=== PATIENT | male | born 1935 ===

== ENCOUNTER 2017-05-03 17:04 | Inpatient (IN) | payer MEDICARE ==
[2017-05-03 17:04] VITALS: BMI 35.7
--- NOTE | 2017-05-03 17:57 | C.PDOC ---
History Of Present Illness Patient is an 81 y/o M sent in by PMD Dr. Pineda for "24 hour holter monitor that showed multiple pauses and second degree av block type 1 and 2." Patient' s PMD contacted Dr. Kaplan, cardiology who recommended futher evaluation. Patient reports that he feels well today but that he had holter monitor placed due to dizziness Time Seen by Provider: 05/03/17 17:48 Chief Complaint (Nursing): Abnormal Labs Past Medical History Vital Signs: Last Vital Signs Temp 98.1 F 05/03/17 17:09 Pulse 92 H 05/03/17 17:09 Resp 15 05/03/17 17:09 BP 149/82 05/03/17 17:09 Pulse Ox 95 05/03/17 18:12 - Medical History PMH: Hypercholesterolemia Surgical History: CABG Family History: States: No Known Family Hx - Social History Hx Alcohol Use: No Hx Substance Use: No Review Of Systems Constitutional: Negative for: Fever, Chills Cardiovascular: Negative for: Chest Pain, Palpitations, Orthopnea, Edema, Light Headedness Respiratory: Negative for: Cough, Shortness of Breath, SOB with Excertion, Wheezing Gastrointestinal: Negative for: Nausea, Vomiting, Abdominal Pain, Constipation Genitourinary: Negative for: Dysuria Musculoskeletal: Negative for: Neck Pain Neurological: Negative for: Weakness, Numbness Physical Exam - Physical Exam Appears: Well, Non-toxic Skin: Normal Color, Warm, Dry Head: Atraumatic, Normacephalic Eye(s): bilateral: Normal Inspection, PERRL, EOMI Neck: Supple Cardiovascular: Rhythm Regular Respiratory: Normal Breath Sounds, No Rales, No Rhonchi, No Wheezing Gastrointestinal/Abdominal: Soft, No Tenderness, No Mass, No Distention Back: Normal Inspection, No CVA Tenderness Extremity: Normal ROM ED Course And Treatment O2 Sat by Pulse Oximetry: 95 Medical Decision Making Medical Decision Making: EKG shows NSR at 86bpm with 1st degree block and RBBB, unchanged from EKG sent from PMD. Labs ordered and Dr. Kaplan contacted. Dr. Kaplan requesting patient to be admitted to hospitalist for cardiac evaluation and likely pacemaker placement. Disposition - Disposition Disposition: HOSPITALIZED Disposition Time: 18:16 Condition: FAIR Forms: [employer] ([place]i) - Clinical Impression Clinical Impression: Bradycardia, AV block
[2017-05-03 18:14] LABS: BASO # 0.1 K/uL (0.0-0.2); BASO % 0.8 % (0.0-2.0); EOS # 0.2 K/uL (0.0-0.7); EOS % 2.3 % (0.0-4.0); HEMATOCRIT 41.3 % (35.0-51.0); LYMPH # 2.7 K/uL (1.0-4.3); LYMPH % 34.7 % (20.0-40.0); MEAN CELL VOLUME 87.7 fL (80.0-94.0); MEAN CORPUSCULAR HEMOGLOBIN 29.7 pg (27.0-31.0); MEAN CORPUSCULAR HGB CONC 33.9 g/dL (33.0-37.0); MEAN PLATELET VOLUME 7.4 fL (7.2-11.7); MONO # 0.8 K/uL (0.0-0.8); MONO % 10.5 % (0.0-10.0); WHITE BLOOD COUNT 7.9 K/uL (4.8-10.8)
[2017-05-03 18:20] LABS: CHLORIDE 103 mmol/L (98-107); POTASSIUM 4.3 mmol/L (3.6-5.2); SODIUM 141 mmol/L (132-148)
[2017-05-03 18:22] LABS: GFR AFRICAN-AMERICAN > 60
[2017-05-03 18:23] LABS: ALB/GLOB RATIO 1.2 (1.0-2.1); ALKALINE PHOSPHATASE 66 U/L (38-126); ALT/SGPT 39 U/L (21-72); AST/SGOT 21 U/L (17-59); BILIRUBIN,TOTAL 0.7 mg/dL (0.2-1.3); BLOOD UREA NITROGEN 20 mg/dL (9-20); CARBON DIOXIDE 23 mmol/L (22-30); GLUCOSE,RANDOM 107 mg/dL (75-110); TOTAL PROTEIN 6.9 g/dL (6.3-8.3)
[2017-05-03 18:27] LABS: INR 1.1
--- NOTE | 2017-05-03 18:54 | RAD ---
HISTORY: bradycardia COMPARISON: None available. TECHNIQUE: Chest, one view. FINDINGS: Examination limited by habitus. LUNGS: No focal consolidation. Please note that chest x-ray has limited sensitivity for the detection of pulmonary masses. PLEURA: No significant pleural effusion identified. No definite pneumothorax . CARDIOVASCULAR: Cardiomegaly. Atherosclerotic calcifications of the aortic knob. OSSEOUS STRUCTURES: Degenerative changes of the spine. VISUALIZED UPPER ABDOMEN: Unremarkable. OTHER FINDINGS: None. IMPRESSION: Cardiomegaly. Atherosclerotic calcifications of the aorta.
--- NOTE | 2017-05-03 22:52 | CP.PCM.CON ---
History of Present Illness - History of Present Illness History of Present Illness: CC: dizziness and 2 ' AVB block noted on holtor monitor HPI: 81-year-old male who was referred to me by his primary care audio visual project manager Dr. Morley for evaluation of second-degree AV block recorded on Holter monitor for evaluation of dizziness. According to his audio visual project manager he has been having severe fatigue and lethargy accompanied with dizziness for a few weeks prior to this presentation. He feels that he may be a component of underlying ischemic heart disease and therefore sent him to the emergency room for further evaluation and treatment. 81-year-old very pleasant male with past medical history significant for prostate cancer status post resection 25 years ago hypertension dyslipidemia who has been followed by Dr. montgomery in the office for symptoms of dizziness. Patient had undergone a stress test and a Holter monitor 2 weeks prior to presentation. Week prior to this presentation patient was noted to have second-degree high AV block and therefore was referred to me for further evaluation and treatment at baseline he is fairly active denies any chest pain shortness palpitations dizziness at NYHA V milligrams 1 2 dyspnea. Past medical history is noted above. Past surgical history prostate resection. Family history significant for dad of [place] at age of 96 mom had Alzheimer's age age of 93. Social history 40 pack year history of smoking occasional alcohol no illicit drug use. Home medications patient takes metoprolol meclizine Norvasc Edarbi 40 mg Crestor. Allergies no known drug allergies. Primary care physician Dr. Yury Waggoner Review of Systems - Review of Systems All systems: reviewed and no additional remarkable complaints except - Constitutional Constitutional: As Per HPI, Fatigue, Lethargy, Malaise. absent: Anorexia, Chills, Daytime Sleepiness, Excessive Sweating, Fever, Frequent Falls, Headache , Increased Appetite, Night Sweats, Snoring, Sleep Apnea, Weight Gain, Weight Loss, Weakness, Other - EENT Eyes: As Per HPI. absent: Blind Spots, Blurred Vision, Change in Vision, Decreased Night Vision, Diplopia, Discharge, Dry Eye, Exophthalmos, Floaters, Irritation, Itchy Eyes, Loss of Peripheral Vision, Pain, Photophobia, Requires Corrective Lenses, Sees Flashes, Spots in Vision, Tunnel Vision, Other Visual Disturbances, Loss of Vision, Other Ears: As Per HPI. absent: Decreased Hearing, Ear Discharge, Ear Pain, Tinnitus , Abnormal Hearing, Disequilibrium, Dizziness, Other Nose/Mouth/Throat: As Per HPI. absent: Epistaxis, Nasal Congestion, Nasal Discharge, Nasal Obstruction, Nasal Trauma, Nose Pain, Post Nasal Drip, Sinus Pain, Sinus Pressure, Bleeding Gums, Change in Voice, Dental Pain, Dry Mouth, Dysphagia, Halitosis, Hoarsness, Lip Swelling, Mouth Lesions, Mouth Pain, Odynophagia, Sore Throat, Throat Swelling, Tongue Swelling, Facial Pain, Neck Pain, Neck Mass, Other - Cardiovascular Cardiovascular: As Per HPI, Leg Edema, Lightheadedness, Palpitations, Slow Heart Rate. absent: Acrocyanosis, Chest Pain, Chest Pain at Rest, Chest Pain with Activity, Claudication, Diaphoresis, Dyspnea, Dyspnea on Exertion, Edema, Irregular Heart Rhythm, Pain Radiating to Arm/Neck/Jaw, Leg Ulcers, Orthopnea, Paroxysmal Nocturnal Dyspnea, Pedal Edema, Radiating Pain, Rapid Heart Rate, Syncope, Other - Respiratory Respiratory: As Per HPI, Dyspnea. absent: Cough, Hemoptysis, Dyspnea on Exertion, Wheezing, Snoring, Stridor, Pain on Inspiration, Chest Congestion, Excessive Mucous Production, Change in Mucous Color, Pain with Coughing, Other - Gastrointestinal Gastrointestinal: As Per HPI. absent: Abdominal Pain, Belching, Bloating, Change in Bowel Habits, Change in Stool Character, Coffee Ground Emesis, Constipation, Cramping, Diarrhea, Dyspepsia, Dysphagia, Early Satiety, Excessive Flatus, Fecal Incontinence, Heartburn, Hematemesis, Hematochezia, Loose Stools, Melena, Nausea, Odynophagia, Temesmus, Vomiting, Other - Genitourinary Genitourinary: As Per HPI. absent: Change in Urinary Stream, Difficulty Urinating, Dysuria, Flank Pain, Hematuria, Pyuria, Nocturia, Urinary Incontinence, Urinary Frequency, Urinary Hesitance, Urinary Urgency, Voiding Freq/Small Amts, Freq UTI, Hx Renal/Bladder Calculi, Hx /Renal Surgery, Bladder Distension, Other - Reproductive: Male Reproductive:Male: As Per HPI - Musculoskeletal Musculoskeletal: As Per HPI - Integumentary Integumentary: As Per HPI. absent: Acne, Alopecia, Bleeding Lesions, Change in Hair, Change in Nails, Change in Pigmentation, Changing Lesions, Dry Skin, Erythema, Furuncle, Hirsutism, Lesions, New Lesions, Non-Healing Lesions, Photosensitivity, Pruritus, Rash, Skin Pain, Skin Ulcer, Sores, Striae, Swelling , Unusual Bruising, Wounds, Jaundice, Other - Neurological Neurological: As Per HPI. absent: Abnormal Gait, Abnormal Hearing, Abnormal Movements, Abnormal Speech, Behavioral Changes, Burning Sensations, Confusion, Convulsions, Disequilibrium, Dizziness, Numbness, Focal Weakness, Frequent Falls , Headaches, Lack of Coordination, Loss of Vision, Memory Loss, Paresthesias, Radicular Pain, Restless Legs, Sensory Deficit, Syncope, Tingling, Tremor, Vertigo, Weakness, Other Visual Disturbances, Other - Psychiatric Psychiatric: As Per HPI. absent: Abnormal Sleep Pattern, Anhedonia, Anxiety, Auditory Hallucinations, Behavioral Changes, Change in Appetite, Change in Libido, Confusion, Depression, Difficulty Concentrating, Hallucinations, Homicidal Ideation, Hopelessness, Irritability, Memory Loss, Mood Swings, Panic Attacks, Paranoia, Suicidal Ideation, Visual Hallucinations, Tactile Hallucinations, Other - Endocrine Endocrine: As Per HPI. absent: Change in Body Appearance, Change in Libido, Cold Intolorance, Deepening of Voice, Excessive Sweating, Fatigue, Flushing, Heat Intolorance, Increase in Ring/Shoe/Hat Size, Palpitations, Polydipsia, Polyphagia, Polyuria, Other - Hematologic/Lymphatic Hematologic: As Per HPI. absent: Easy Bleeding, Easy Bruising, Lymphadenopathy , Other Past Patient History - Past Social History Smoking Status: Former Smoker - CARDIAC Hx Hypercholesterolemia: Yes - PSYCHIATRIC Hx Substance Use: No - SURGICAL HISTORY Hx Coronary Artery Bypass Graft: Yes Meds Home Medications: Home Medication List Medication Instructions Recorded Confirmed Type Losartan [Cozaar] 25 mg PO DAILY tab 05/08/17 Rx Rosuvastatin Calcium [Crestor] 20 mg PO HS tab 05/08/17 Rx Aspirin [Aspirin Chewable] 81 mg PO DAILY #30 05/11/17 Rx Clopidogrel [Plavix] 75 mg PO DAILY #30 tab 05/11/17 Rx Docusate [Colace] 100 mg PO BID #60 cap 05/11/17 Rx Metoprolol Tartrate 25 mg PO DAILY #30 tablet 05/11/17 Rx Allergies/Adverse Reactions: Allergies Allergy/AdvReac Type Severity Reaction Status Date / Time No Known Allergies Allergy Verified 05/03/17 17:08 Physical Exam - Constitutional Appears: Well - Head Exam Head Exam: ATRAUMATIC, NORMAL INSPECTION, NORMOCEPHALIC - Eye Exam Eye Exam: EOMI, Normal appearance, PERRL Pupil Exam: NORMAL ACCOMODATION, PERRL - ENT Exam ENT Exam: Mucous Membranes Moist, Normal Exam - Neck Exam Neck exam: Positive for: Normal Inspection - Respiratory Exam Respiratory Exam: Clear to Auscultation Bilateral, NORMAL BREATHING PATTERN - Cardiovascular Exam Cardiovascular Exam: Bradycardia, REGULAR RHYTHM, RRR, +S1, +S2, Systolic Murmur - GI/Abdominal Exam GI & Abdominal Exam: Normal Bowel Sounds, Soft. absent: Tenderness - Extremities Exam Extremities exam: Positive for: normal inspection - Back Exam Back exam: NORMAL INSPECTION - Neurological Exam Neurological exam: Alert, CN II-XII Intact, Normal Gait, Oriented x3, Reflexes Normal - Psychiatric Exam Psychiatric exam: Normal Affect, Normal Mood - Skin Skin Exam: Dry, Intact, Normal Color, Warm Results - Vital Signs Recent Vital Signs: Last Vital Signs Temp 98.0 F 05/03/17 20:25 Pulse 75 05/03/17 20:25 Resp 16 05/03/17 20:25 BP 123/89 05/03/17 20:25 Pulse Ox 96 05/03/17 20:25 - Labs Result Diagrams: 05/11/17 10:50 05/11/17 10:50 Assessment & Plan (1) AV block Assessment and Plan: EP evaluation cardiac cath to r/o IHD monitor on telemetry Status: Acute (2) Bradycardia Assessment and Plan: EP PPM eval telemetry Status: Acute (3) Dizziness Assessment and Plan: 2' to above monitor on telemetry Status: Acute
--- NOTE | 2017-05-04 03:59 | CP.PCM.HP ---
<Jackie Vidal - Last Filed: 05/04/17 04:31> History of Present Illness - History of Present Illness History of Present Illness: Patient was seen and examined at approximately 20:20PM on 05/03/17. Patient is DNR/DNI and deems brother Shad Ochoa as Power of employment attorney CC: dizziness HPI: 81 year old male with PMHx significant for Heart block and arthritis presents in need of pacemaker. Patient began experiencing dizziness approximately two weeks ago. He went to see his PMD Dr. Pineda who recommended a holter monitor. The findings of the monitor were significant for second degree AV block. Patient was thus referred to see [employer] Dr. Kaplan for pacemaker placement. Today, patient states that he does not have any complaints. He specifically denies subjective fevers or chills, chest pain, palpitations, weakness, headaches, nausea, vomiting, changes in bowels, recent weight changes at this time. PMHx- as noted above PSHx- prostate procedure 25 years ago. Patient states that they " took a scrape " Fam Hx- Dad at the age of 96 of an SC; Mother diagnosed with Alzhiemer's at 89. at the age of 93 Social Hx- Smoked 1 ppd from the age of 16 to the age of 39; drinks a glass of red wine frequently; denies illicit drug use Meds- Folic acid 1 mg daily, toprol XL 25 mg daily, meclizine 25 mg PO BID, Norvasc 5 mg daily, Edarbi ( azilsartan medoxomil) 40 mg daily, Crestor 20 mg at night Allergies- NKDA PMD: Dr. Yury Pineda Present on Admission - Present on Admission Any Indicators Present on Admission: No Review of Systems - Constitutional Constitutional: absent: Frequent Falls, Headache - EENT Eyes: absent: Blurred Vision, Change in Vision Ears: absent: Ear Discharge, Ear Pain Nose/Mouth/Throat: absent: Nasal Congestion - Cardiovascular Cardiovascular: absent: Chest Pain, Chest Pain at Rest - Gastrointestinal Gastrointestinal: absent: Nausea, Vomiting - Musculoskeletal Musculoskeletal: Back Pain - Integumentary Integumentary: absent: Change in Hair, Dry Skin - Neurological Neurological: absent: Abnormal Hearing, Abnormal Movements - Psychiatric Psychiatric: absent: Anxiety Past Patient History - Past Social History Smoking Status: Former Smoker - CARDIAC Hx Hypercholesterolemia: Yes - PSYCHIATRIC Hx Substance Use: No - SURGICAL HISTORY Hx Coronary Artery Bypass Graft: Yes Meds Allergies/Adverse Reactions: Allergies Allergy/AdvReac Type Severity Reaction Status Date / Time No Known Allergies Allergy Verified 05/03/17 17:08 Physical Exam - Constitutional Appears: Non-toxic, No Acute Distress, Younger Than Stated Age - Head Exam Head Exam: ATRAUMATIC, NORMAL INSPECTION, NORMOCEPHALIC - Eye Exam Eye Exam: EOMI, Normal appearance, PERRL Pupil Exam: NORMAL ACCOMODATION - ENT Exam ENT Exam: Mucous Membranes Moist - Neck Exam Neck exam: Positive for: Full Rom - Respiratory Exam Respiratory Exam: NORMAL BREATHING PATTERN. absent: Wheezes - Cardiovascular Exam Cardiovascular Exam: +S1, +S2. absent: Bradycardia, Tachycardia Additional comments: difficult to auscultate heart sounds - GI/Abdominal Exam GI & Abdominal Exam: Distended, Normal Bowel Sounds, Soft. absent: Firm, Guarding, Rigid - Extremities Exam Extremities exam: Positive for: full ROM, normal capillary refill, pedal pulses present. Negative for: tenderness - Back Exam Back exam: FULL ROM - Neurological Exam Neurological exam: Alert, CN II-XII Intact, Oriented x3 - Psychiatric Exam Psychiatric exam: Normal Affect, Normal Mood - Skin Skin Exam: Dry, Intact, Normal Color, Warm Results - Vital Signs Recent Vital Signs: Last Vital Signs Temp 98 F 05/04/17 02:36 Pulse 72 05/04/17 03:26 Resp 16 05/04/17 03:26 BP 123/68 05/04/17 03:26 Pulse Ox 96 05/04/17 03:26 - Labs Result Diagrams: 05/03/17 18:08 05/03/17 18:08 Assessment & Plan (1) AV block Assessment and Plan: AV block findings consistent with second degree block. EKG showed sinus rhythm with 1st degree AV block and RBBB CXR showed cardiomegaly with calcification of aortic knob Echo report from 04/30/17: LVEF 65%, LV normal size with normal wall thickness. Refer to complete report Stress test report from 04/30/17: Normal with fair work capacity. Refer to complete report. F/U AM labs and coag studies F/U Dr. Kaplan's (Cardio) recommendations Patient on Toprol XL, Norvasc and Crestor. Will begin Losartan [address] of Edarbi. Status: Acute (2) Dizziness Assessment and Plan: Likely secondary to AV block Meclizine 25 mg BID PRN Status: Acute (3) Prophylactic measure Assessment and Plan: SCDS No heparin on board in light of procedure. This can be restarted following procedure. GI prophylaxis not indicated at this time. Status: Acute <Derik Whatley - Last Filed: 05/04/17 06:24> Results - Vital Signs Recent Vital Signs: Last Vital Signs Temp 98 F 05/04/17 02:36 Pulse 72 05/04/17 03:26 Resp 16 05/04/17 03:26 BP 123/68 05/04/17 03:26 Pulse Ox 94 L 05/04/17 05:06 - Labs Result Diagrams: 05/04/17 04:38 05/04/17 04:38 Labs: Laboratory Results - last 24 hr 05/04/17 05/04/17 05/04/17 04:38 04:38 04:38 WBC 9.0 RBC 4.59 Hgb 14.0 Hct 40.1 MCV 87.4 MCH 30.5 MCHC 34.9 RDW 13.7 Plt Count 211 MPV 7.0 L Neut % (Auto) 50.8 Lymph % (Auto) 36.7 [place] % (Auto) 9.2 Eos % (Auto) 2.7 Baso % (Auto) 0.6 Neut # 4.6 Lymph # 3.3 [place] # 0.8 Eos # 0.2 Baso # 0.1 PT 13.0 H INR 1.2 APTT 33 Sodium 142 Potassium 4.3 Chloride 105 Carbon Dioxide 25 Anion Gap 17 BUN 18 Creatinine 1.0 Est GFR ( Amer) > 60 Est GFR (Non-Af Amer) > 60 Random Glucose 96 Calcium 9.0 Phosphorus 3.4 Magnesium 2.2 Total Bilirubin 0.9 AST 23 ALT 35 Alkaline Phosphatase 63 Total Protein 6.8 Albumin 3.7 Globulin 3.2 Albumin/Globulin Ratio 1.2 Triglycerides 161 H Cholesterol 126 LDL Cholesterol Direct 68 HDL Cholesterol 36 Assessment & Plan - Date & Time Date: 05/04/17 (I have seen and examined the patient. I agree with the findings and plan of care as documented by Dr. Vidal. Patient with AV block and dizziness. Consult patient's Cardio. Pacer to be placed. Monitor closely on tele. Fall precautions. Monitor for acute changes.) Time: 06:23 Attending/Attestation - Attestation I have personally seen and examined this patient.: Yes I have fully participated in the care of the patient.: Yes I have reviewed all pertinent clinical information: Yes
[2017-05-04 04:46] LABS: BASO # 0.1 K/uL (0.0-0.2); BASO % 0.6 % (0.0-2.0); EOS # 0.2 K/uL (0.0-0.7); EOS % 2.7 % (0.0-4.0); HEMATOCRIT 40.1 % (35.0-51.0); LYMPH # 3.3 K/uL (1.0-4.3); LYMPH % 36.7 % (20.0-40.0); MEAN CELL VOLUME 87.4 fL (80.0-94.0); MEAN CORPUSCULAR HEMOGLOBIN 30.5 pg (27.0-31.0); MEAN CORPUSCULAR HGB CONC 34.9 g/dL (33.0-37.0); MONO # 0.8 K/uL (0.0-0.8); MONO % 9.2 % (0.0-10.0); RED CELL DISTRIBUTION WIDTH 13.7 % (11.5-14.5)
[2017-05-04 04:50] LABS: INR 1.2
[2017-05-04 04:56] LABS: CHLORIDE 105 mmol/L (98-107)
[2017-05-04 04:57] LABS: POTASSIUM 4.3 mmol/L (3.6-5.2); SODIUM 142 mmol/L (132-148)
[2017-05-04 04:58] LABS: CHOLESTEROL 126 mg/dL (0-199)
[2017-05-04 04:59] LABS: ALB/GLOB RATIO 1.2 (1.0-2.1); ALKALINE PHOSPHATASE 63 U/L (38-126); ALT/SGPT 35 U/L (21-72); AST/SGOT 23 U/L (17-59); BILIRUBIN,TOTAL 0.9 mg/dL (0.2-1.3); BLOOD UREA NITROGEN 18 mg/dL (9-20); CARBON DIOXIDE 25 mmol/L (22-30); GFR AFRICAN-AMERICAN > 60; GLUCOSE,RANDOM 96 mg/dL (75-110); TOTAL PROTEIN 6.8 g/dL (6.3-8.3)
[2017-05-04 05:00] LABS: MAGNESIUM 2.2 mg/dL (1.6-2.3); PHOSPHOROUS 3.4 mg/dL (2.5-4.5)
[2017-05-04] MEDS: Dextrose 5%/0.9% NS 1,000 ML IV SCH ×2 (06:15→14:00)
[2017-05-04 09:51] LABS: T4 6.42 ug/dL (5.5-11.0)
[2017-05-04] MEDS ORDERED: Metoprolol Succinate 25 mg XL Tab PO SCH (10:00)
[2017-05-04 10:05] LABS: THYROID STIMULATING HORMONE 2.17 mIU/L (0.46-4.68)
--- NOTE | 2017-05-04 10:17 | CP.PCM.CON ---
<TIFFANY LOCKHART - Last Filed: 05/04/17 10:07> History of Present Illness - History of Present Illness History of Present Illness: Tiffany Lockhart, PGY1, Consult Note for Cardiology (Dr. Enriquez): CC: dizziness and 2nd degree AV block of holter monitor HPI: 81M with PMH HTN, HLD, presented to ED for 2nd degree AV block on holter monitor. Two weeks [employer], pt began experiencing dizziness and was put on Holter monitor by PMD Dr. Pineda. The findings of the monitor were significant for multiple pauses of 3.5 secs and second degree AV block type 1 and 2. Pt denied any dizziness, h/a, cp, sob, n/v/diaphoresis, abdominal pain. VS notable for bradycardia HR 47-55, EKG shows HR 86, 1st degree AV block. Dr Kaplan to perform cardiac cath today. Cardiology (Dr. Enriquez) consulted for pacemaker placement. PMHx- HTN, HLD, OA PSHx- prostate procedure 25 years ago. Fam Hx- Dad at the age of 96 of an OH; Mother diagnosed with Alzhiemer's at 89. at the age of 93 Social Hx- Smoked 1 ppd from the age of 16 to the age of 39; drinks a glass of red wine frequently; denies illicit drug use Meds- Folic acid 1 mg daily, toprol XL 25 mg daily, meclizine 25 mg PO BID, Norvasc 5 mg daily, Edarbi ( azilsartan medoxomil) 40 mg daily, Crestor 20 mg at night Allergies- NKDA PMD: Dr. Yury Pineda Review of Systems - EENT Eyes: absent: Blurred Vision, Change in Vision - Cardiovascular Cardiovascular: Lightheadedness. absent: Chest Pain, Dyspnea on Exertion, Edema , Palpitations, Pedal Edema - Respiratory Respiratory: absent: Cough, Chest Congestion - Gastrointestinal Gastrointestinal: absent: Abdominal Pain, Diarrhea - Genitourinary Genitourinary: absent: Change in Urinary Stream - Neurological Neurological: absent: Behavioral Changes, Numbness - Hematologic/Lymphatic Hematologic: absent: Easy Bleeding Past Patient History - Past Medical History & Family History Past Medical History?: Yes - Past Social History Smoking Status: Former Smoker - CARDIAC Hx Cardiac Disorders: Yes Hx Hypercholesterolemia: Yes Hx Hypertension: Yes - PULMONARY Hx Respiratory Disorders: No - NEUROLOGICAL Hx Neurological Disorder: No - HEENT Hx HEENT Problems: Yes Other/Comment: glasses for reading - RENAL Hx Chronic Kidney Disease: No - ENDOCRINE/METABOLIC Hx Endocrine Disorders: No - HEMATOLOGICAL/ONCOLOGICAL Hx Blood Disorders: No - INTEGUMENTARY Hx Dermatological Problems: No - MUSCULOSKELETAL/RHEUMATOLOGICAL Hx Musculoskeletal Disorders: Yes Hx Arthritis: Yes Hx Falls: No - GASTROINTESTINAL Hx Gastrointestinal Disorders: No - GENITOURINARY/GYNECOLOGICAL Hx Genitourinary Disorders: Yes Hx Prostate Problems: Yes - PSYCHIATRIC Hx Psychophysiologic Disorder: No Hx Substance Use: No - SURGICAL HISTORY Hx Surgeries: Yes Other/Comment: prostate sx 25 years ago - ANESTHESIA Hx Anesthesia: Yes Hx Anesthesia Reactions: No Hx Malignant Hyperthermia: No Meds Allergies/Adverse Reactions: Allergies Allergy/AdvReac Type Severity Reaction Status Date / Time No Known Allergies Allergy Verified 05/03/17 17:08 - Medications Medications: Current Medications Amlodipine Besylate (Norvasc) 5 mg PO DAILY [facility] Last Admin: 05/04/17 09:59 Dose: 5 mg Folic Acid (Folic Acid) 1 mg PO DAILY [facility] Last Admin: 05/04/17 09:59 Dose: 1 mg Dextrose/Sodium Chloride (Dextrose 5%/0.9% Ns 1000 Ml) 1,000 mls @ 100 mls/hr IV .Q10H [facility] Last Admin: 05/04/17 06:15 Dose: 100 mls/hr Losartan Potassium (Cozaar) 25 mg PO DAILY [facility] Last Admin: 05/04/17 09:59 Dose: 25 mg Meclizine HCl (Antivert) 25 mg PO BID PRN PRN Reason: Dizziness Metoprolol Succinate (Toprol Xl) 25 mg PO DAILY [facility] Rosuvastatin Calcium (Crestor) 20 mg PO HS [facility] Physical Exam - Constitutional Appears: No Acute Distress - Head Exam Head Exam: ATRAUMATIC, NORMOCEPHALIC - Eye Exam Eye Exam: Normal appearance, PERRL - ENT Exam ENT Exam: Mucous Membranes Moist - Respiratory Exam Respiratory Exam: Clear to Auscultation Bilateral - Cardiovascular Exam Cardiovascular Exam: Bradycardia - GI/Abdominal Exam GI & Abdominal Exam: Normal Bowel Sounds, Soft. absent: Distended - Extremities Exam Extremities exam: Negative for: calf tenderness, pedal edema - Neurological Exam Neurological exam: Alert, Oriented x3 - Psychiatric Exam Psychiatric exam: Normal Mood - Skin Skin Exam: Dry, Warm Results - Vital Signs Recent Vital Signs: Last Vital Signs Temp 97.6 F 05/04/17 06:00 Pulse 47 L 05/04/17 07:59 Resp 20 05/04/17 06:00 BP 155/68 H 05/04/17 06:00 Pulse Ox 94 L 05/04/17 05:06 - Labs Result Diagrams: 05/04/17 04:38 05/04/17 04:38 Labs: Laboratory Results - last 24 hr 05/04/17 05/04/17 05/04/17 04:38 04:38 04:38 WBC 9.0 RBC 4.59 Hgb 14.0 Hct 40.1 MCV 87.4 MCH 30.5 MCHC 34.9 RDW 13.7 Plt Count 211 MPV 7.0 L Neut % (Auto) 50.8 Lymph % (Auto) 36.7 [place] % (Auto) 9.2 Eos % (Auto) 2.7 Baso % (Auto) 0.6 Neut # 4.6 Lymph # 3.3 [place] # 0.8 Eos # 0.2 Baso # 0.1 PT 13.0 H INR 1.2 APTT 33 Sodium 142 Potassium 4.3 Chloride 105 Carbon Dioxide 25 Anion Gap 17 BUN 18 Creatinine 1.0 Est GFR ( Amer) > 60 Est GFR (Non-Af Amer) > 60 Random Glucose 96 Hemoglobin A1c Calcium 9.0 Phosphorus 3.4 Magnesium 2.2 Total Bilirubin 0.9 AST 23 ALT 35 Alkaline Phosphatase 63 Total Protein 6.8 Albumin 3.7 Globulin 3.2 Albumin/Globulin Ratio 1.2 Triglycerides 161 H Cholesterol 126 LDL Cholesterol Direct 68 HDL Cholesterol 36 Thyroxine (T4) 6.42 TSH 3rd Generation 2.17 05/04/17 04:38 WBC RBC Hgb Hct MCV MCH MCHC RDW Plt Count MPV Neut % (Auto) Lymph % (Auto) [place] % (Auto) Eos % (Auto) Baso % (Auto) Neut # Lymph # [place] # Eos # Baso # PT INR APTT Sodium Potassium Chloride Carbon Dioxide Anion Gap BUN Creatinine Est GFR ( Amer) Est GFR (Non-Af Amer) Random Glucose Hemoglobin A1c 6.0 Calcium Phosphorus Magnesium Total Bilirubin AST ALT Alkaline Phosphatase Total Protein Albumin Globulin Albumin/Globulin Ratio Triglycerides Cholesterol LDL Cholesterol Direct HDL Cholesterol Thyroxine (T4) TSH 3rd Generation Assessment & Plan - Assessment and Plan (Free Text) Assessment: 81M with PMH HTN, HLD, admitted to the hospital for bradycardia and 2nd degree AV block, currently awaiting cardiac cath. Scheduled for pacemaker placement by Dr. Enriquez on Sunday (05/07). Plan: Dizziness 2/2 likely 2nd degree AV block: - Holter monitor at home showed multiple pauses of 3.5 secs and 2nd degree AV block type 1 and type 2. - EKG 05/03 showed HR 86, sinus rhythm with 1st degree AV block and RBBB - CXR 05/03 showed cardiomegaly with calcification of aortic knob - Echo report from 04/30/17: LVEF 65%, no valvular abnormalities, No LVH. - Exercise Stress test 04/30/17: Normal, no ekg changes, fair work capacity. - C/w Toprol XL, Norvasc, Crestor, losartan. - Likely go for cardiac cath today with Dr. Kaplan. - Will place pacemaker on Sunday. Discussed with attending, Dr. Enriquez. Tiffany Lockhart PGY1 - Date & Time Date: 05/04/17 Time: 10:29 <Tiana Enriquez - Last Filed: 05/04/17 10:50> Meds - Medications Medications: Current Medications Amlodipine Besylate (Norvasc) 5 mg PO DAILY [facility] Last Admin: 05/04/17 09:59 Dose: 5 mg Folic Acid (Folic Acid) 1 mg PO DAILY [facility] Last Admin: 05/04/17 09:59 Dose: 1 mg Dextrose/Sodium Chloride (Dextrose 5%/0.9% Ns 1000 Ml) 1,000 mls @ 100 mls/hr IV .Q10H [facility] Last Admin: 05/04/17 06:15 Dose: 100 mls/hr Losartan Potassium (Cozaar) 25 mg PO DAILY [facility] Last Admin: 05/04/17 09:59 Dose: 25 mg Meclizine HCl (Antivert) 25 mg PO BID PRN PRN Reason: Dizziness Metoprolol Succinate (Toprol Xl) 25 mg PO DAILY [facility] Rosuvastatin Calcium (Crestor) 20 mg PO HS [facility] Results - Vital Signs Recent Vital Signs: Last Vital Signs Temp 97.6 F 05/04/17 06:00 Pulse 47 L 05/04/17 07:59 Resp 20 05/04/17 06:00 BP 155/68 H 05/04/17 06:00 Pulse Ox 94 L 05/04/17 05:06 - Labs Result Diagrams: 05/04/17 04:38 05/04/17 04:38 Labs: Laboratory Results - last 24 hr 05/04/17 05/04/17 05/04/17 04:38 04:38 04:38 WBC 9.0 RBC 4.59 Hgb 14.0 Hct 40.1 MCV 87.4 MCH 30.5 MCHC 34.9 RDW 13.7 Plt Count 211 MPV 7.0 L Neut % (Auto) 50.8 Lymph % (Auto) 36.7 [place] % (Auto) 9.2 Eos % (Auto) 2.7 Baso % (Auto) 0.6 Neut # 4.6 Lymph # 3.3 [place] # 0.8 Eos # 0.2 Baso # 0.1 PT 13.0 H INR 1.2 APTT 33 Sodium 142 Potassium 4.3 Chloride 105 Carbon Dioxide 25 Anion Gap 17 BUN 18 Creatinine 1.0 Est GFR ( Amer) > 60 Est GFR (Non-Af Amer) > 60 Random Glucose 96 Hemoglobin A1c Calcium 9.0 Phosphorus 3.4 Magnesium 2.2 Total Bilirubin 0.9 AST 23 ALT 35 Alkaline Phosphatase 63 Total Protein 6.8 Albumin 3.7 Globulin 3.2 Albumin/Globulin Ratio 1.2 Triglycerides 161 H Cholesterol 126 LDL Cholesterol Direct 68 HDL Cholesterol 36 Thyroxine (T4) 6.42 TSH 3rd Generation 2.17 05/04/17 04:38 WBC RBC Hgb Hct MCV MCH MCHC RDW Plt Count MPV Neut % (Auto) Lymph % (Auto) [place] % (Auto) Eos % (Auto) Baso % (Auto) Neut # Lymph # [place] # Eos # Baso # PT INR APTT Sodium Potassium Chloride Carbon Dioxide Anion Gap BUN Creatinine Est GFR ( Amer) Est GFR (Non-Af Amer) Random Glucose Hemoglobin A1c 6.0 Calcium Phosphorus Magnesium Total Bilirubin AST ALT Alkaline Phosphatase Total Protein Albumin Globulin Albumin/Globulin Ratio Triglycerides Cholesterol LDL Cholesterol Direct HDL Cholesterol Thyroxine (T4) TSH 3rd Generation Attending/Attestation - Attestation I have personally seen and examined this patient.: Yes I have fully participated in the care of the patient.: Yes I have reviewed all pertinent clinical information: Yes Notes (Text): 05/04/17 10:39 Pt with type II block on holter bradycardia ppm cardiac cath r/o ischemic disease
--- NOTE | 2017-05-04 12:56 | CARD ---
APPROVED REPORT EKG Measurement Heart [id number] <Conclusion> Sinus rhythm with 1st degree AV block Right bundle branch block Abnormal ECG
--- NOTE | 2017-05-04 13:42 | CP.PCM.PN ---
Addendum entered and electronically signed by Carolyn Wagoner DO 05/04/17 19:10 : As per Dr. Kaplan, Cardiac Cath was unable to be performed today. Cardiac Cath will be performed Sunday05/04/17. Patient will be NPO the night prior for the procedure. Original Note: <Carolyn Wagoner - Last Filed: 05/04/17 13:45> Subjective - Date & Time of Evaluation Date of Evaluation: 05/04/17 Time of Evaluation: 07:00 - Subjective Subjective: Medicine Note for Dr. Mcmillan Patient was seen and examined at bedside. No acute complaints. Denied fever, chills, headache, chest pain, abdominal pain, n/v/d/c, or urinary symptoms. Objective - Vital Signs/Intake and Output Vital Signs (last 24 hours): Temp Pulse Resp BP Pulse Ox 97.6 F 47 L 20 155/68 H 94 L 05/04/17 06:00 05/04/17 07:59 05/04/17 06:00 05/04/17 06:00 05/04/17 05:06 Intake and Output: 05/04/17 05/04/17 06:59 18:59 Intake Total 300 100 Output Total 0 Balance 300 100 - Medications Medications: Current Medications Amlodipine Besylate (Norvasc) 5 mg PO DAILY [facility] Last Admin: 05/04/17 09:59 Dose: 5 mg Folic Acid (Folic Acid) 1 mg PO DAILY [facility] Last Admin: 05/04/17 09:59 Dose: 1 mg Dextrose/Sodium Chloride (Dextrose 5%/0.9% Ns 1000 Ml) 1,000 mls @ 100 mls/hr IV .Q10H [facility] Last Admin: 05/04/17 06:15 Dose: 100 mls/hr Losartan Potassium (Cozaar) 25 mg PO DAILY [facility] Last Admin: 05/04/17 09:59 Dose: 25 mg Meclizine HCl (Antivert) 25 mg PO BID PRN PRN Reason: Dizziness Metoprolol Succinate (Toprol Xl) 25 mg PO DAILY [facility] Rosuvastatin Calcium (Crestor) 20 mg PO HS [facility] - Labs Labs: 05/04/17 04:38 05/04/17 04:38 PT 13.0 SECONDS (9.7-12.2) H 05/04/17 04:38 INR 1.2 05/04/17 04:38 APTT 33 SECONDS (21-34) 05/04/17 04:38 - Constitutional Appears: No Acute Distress - Head Exam Head Exam: NORMAL INSPECTION, NORMOCEPHALIC - Eye Exam Eye Exam: EOMI, Normal appearance, PERRL Pupil Exam: NORMAL ACCOMODATION - ENT Exam ENT Exam: Mucous Membranes Moist, Normal Exam - Neck Exam Neck Exam: Normal Inspection - Respiratory Exam Respiratory Exam: Decreased Breath Sounds, Clear to Ausculation Bilateral, Wheezes, NORMAL BREATHING PATTERN - Cardiovascular Exam Cardiovascular Exam: REGULAR RHYTHM, RRR, +S1, +S2 - GI/Abdominal Exam GI & Abdominal Exam: Soft, Tenderness, Normal Bowel Sounds - Extremities Exam Extremities Exam: Normal Inspection. absent: Pedal Edema, Tenderness - Neurological Exam Neurological Exam: Alert, Awake, Oriented x3 - Psychiatric Exam Psychiatric exam: Normal Affect, Normal Mood - Skin Skin Exam: Dry, Intact, Normal Color, Warm Assessment and Plan - Assessment and Plan (Free Text) Plan: AV block Assessment and Plan: AV block findings consistent with second degree block. EKG showed sinus rhythm with 1st degree AV block and RBBB CXR showed cardiomegaly with calcification of aortic knob Echo report from 04/30/17: LVEF 65%, LV normal size with normal wall thickness. Refer to complete report Stress test report from 04/30/17: Normal with fair work capacity. Refer to complete report. Patient on Toprol XL (HELD), Norvasc and Crestor. Will begin Losartan [address] of [address]arbi. Dr. Kaplan's (Cardio) recommendations - Cardiac Cath today 4pm Plan with Dr[address] Enriqeuz pacemaker Sunday05/07/17 Status: Acute Dizziness Assessment and Plan: Likely secondary to AV block Meclizine 25 mg BID PRN Status: Acute Prophylactic measure Assessment and Plan: SCDS No heparin on board in light of procedure. This can be restarted following procedure. GI prophylaxis not indicated at this time. Status: Acute DW Ciaran Martino DO, PGY-1 <Jeff Mcmillan - Last Filed: 05/05/17 12:51> Objective - Vital Signs/Intake and Output Vital Signs (last 24 hours): Temp Pulse Resp BP Pulse Ox 98 F 73 17 112/62 94 L 05/05/17 04:00 05/05/17 07:00 05/05/17 07:00 05/05/17 03:43 05/05/17 06:00 Intake and Output: 05/05/17 05/05/17 06:59 18:59 Intake Total 240 Output Total 800 Balance -560 - Medications Medications: Current Medications Amlodipine Besylate (Norvasc) 5 mg PO DAILY [facility] Last Admin: 05/04/17 09:59 Dose: 5 mg Enoxaparin Sodium (Lovenox) 40 mg SC DAILY [facility] Folic Acid (Folic Acid) 1 mg PO DAILY [facility] Last Admin: 05/04/17 09:59 Dose: 1 mg Dextrose/Sodium Chloride (Dextrose 5%/0.9% Ns 1000 Ml) 1,000 mls @ 100 mls/hr IV .Q10H [facility] Last Admin: 05/04/17 14:00 Dose: Not Given Losartan Potassium (Cozaar) 25 mg PO DAILY [facility] Last Admin: 05/04/17 09:59 Dose: 25 mg Meclizine HCl (Antivert) 25 mg PO BID PRN PRN Reason: Dizziness Metoprolol Succinate (Toprol Xl) 25 mg PO DAILY [facility] Rosuvastatin Calcium (Crestor) 20 mg PO HS [facility] Last Admin: 05/04/17 21:06 Dose: 20 mg - Labs Labs: 05/05/17 06:19 05/05/17 06:14 PT 13.0 SECONDS (9.7-12.2) H 05/04/17 04:38 INR 1.2 05/04/17 04:38 APTT 33 SECONDS (21-34) 05/04/17 04:38 Attending/Attestation - Attestation I have personally seen and examined this patient.: Yes I have fully participated in the care of the patient.: Yes I have reviewed all pertinent clinical information, including history, physical exam and plan: Yes Notes (Text): 05/05/17 12:50 Patient was seen and examined at bedside with the resident He denies any new complaints Denies any chest pain or palpitation Does not have any complaint of dizziness We'll continue current medical management Plan for cardiac catheterization and the pacemaker placement early next week.
[2017-05-05 06:35] LABS: BASO # 0.1 K/uL (0.0-0.2); BASO % 0.9 % (0.0-2.0); EOS # 0.3 K/uL (0.0-0.7); EOS % 4.3 % (0.0-4.0); HEMATOCRIT 40.4 % (35.0-51.0); LYMPH # 2.4 K/uL (1.0-4.3); LYMPH % 33.4 % (20.0-40.0); MEAN CELL VOLUME 87.3 fL (80.0-94.0); MEAN CORPUSCULAR HEMOGLOBIN 29.6 pg (27.0-31.0); MEAN CORPUSCULAR HGB CONC 33.9 g/dL (33.0-37.0); MEAN PLATELET VOLUME 7.6 fL (7.2-11.7); MONO # 0.8 K/uL (0.0-0.8); MONO % 10.3 % (0.0-10.0); RED CELL DISTRIBUTION WIDTH 14.1 % (11.5-14.5); WHITE BLOOD COUNT 7.3 K/uL (4.8-10.8)
[2017-05-05 06:39] LABS: CHLORIDE 102 mmol/L (98-107); SODIUM 140 mmol/L (132-148)
[2017-05-05 06:40] LABS: POTASSIUM 3.8 mmol/L (3.6-5.2)
[2017-05-05 06:42] LABS: ALB/GLOB RATIO 1.1 (1.0-2.1); ALKALINE PHOSPHATASE 59 U/L (38-126); ALT/SGPT 35 U/L (21-72); AST/SGOT 31 U/L (17-59); BILIRUBIN,TOTAL 0.9 mg/dL (0.2-1.3); BLOOD UREA NITROGEN 17 mg/dL (9-20); CARBON DIOXIDE 24 mmol/L (22-30); GFR AFRICAN-AMERICAN > 60; GLUCOSE,RANDOM 89 mg/dL (75-110); PHOSPHOROUS 3.1 mg/dL (2.5-4.5); TOTAL PROTEIN 6.7 g/dL (6.3-8.3)
[2017-05-05 06:43] LABS: CALCIUM 8.8 mg/dl (8.6-10.4); MAGNESIUM 2.1 mg/dL (1.6-2.3)
--- NOTE | 2017-05-05 07:42 | CP.PCM.PN ---
Subjective - Date & Time of Evaluation Date of Evaluation: 05/05/17 Time of Evaluation: 07:42 - Subjective Subjective: stable bp tolerating po Objective - Vital Signs/Intake and Output Vital Signs (last 24 hours): Temp Pulse Resp BP Pulse Ox 98 F 73 17 112/62 94 L 05/05/17 04:00 05/05/17 07:00 05/05/17 07:00 05/05/17 03:43 05/05/17 06:00 Intake and Output: 05/05/17 05/05/17 06:59 18:59 Intake Total 240 Output Total 800 Balance -560 - Medications Medications: Current Medications Amlodipine Besylate (Norvasc) 5 mg PO DAILY [facility] Last Admin: 05/04/17 09:59 Dose: 5 mg Folic Acid (Folic Acid) 1 mg PO DAILY [facility] Last Admin: 05/04/17 09:59 Dose: 1 mg Dextrose/Sodium Chloride (Dextrose 5%/0.9% Ns 1000 Ml) 1,000 mls @ 100 mls/hr IV .Q10H [facility] Last Admin: 05/04/17 14:00 Dose: Not Given Losartan Potassium (Cozaar) 25 mg PO DAILY [facility] Last Admin: 05/04/17 09:59 Dose: 25 mg Meclizine HCl (Antivert) 25 mg PO BID PRN PRN Reason: Dizziness Metoprolol Succinate (Toprol Xl) 25 mg PO DAILY [facility] Rosuvastatin Calcium (Crestor) 20 mg PO HS [facility] Last Admin: 05/04/17 21:06 Dose: 20 mg - Labs Labs: 05/05/17 06:19 05/05/17 06:14 PT 13.0 SECONDS (9.7-12.2) H 05/04/17 04:38 INR 1.2 05/04/17 04:38 APTT 33 SECONDS (21-34) 05/04/17 04:38 - Constitutional Appears: Well - Head Exam Head Exam: ATRAUMATIC - Eye Exam Eye Exam: Normal appearance - ENT Exam ENT Exam: Mucous Membranes Moist - Respiratory Exam Respiratory Exam: Clear to Ausculation Bilateral - Cardiovascular Exam Cardiovascular Exam: REGULAR RHYTHM - GI/Abdominal Exam GI & Abdominal Exam: Normal Bowel Sounds - Exam External exam: NORMAL EXTERNAL EXAM - Extremities Exam Extremities Exam: Normal Inspection - Neurological Exam Neurological Exam: Alert, Awake - Psychiatric Exam Psychiatric exam: Normal Mood - Skin Skin Exam: Dry Assessment and Plan (1) AV block Assessment & Plan: av block bradycardia hold av princess blockers for ppm] angiogram Status: Acute (2) Bradycardia Status: Acute
--- NOTE | 2017-05-05 09:27 | CP.PCM.PN ---
<Juana Shane - Last Filed: 05/05/17 13:54> Subjective - Date & Time of Evaluation Date of Evaluation: 05/05/17 Time of Evaluation: 07:00 - Subjective Subjective: Medicine Note for Dr. Mcmillan Patient was seen and examined at bedside. No acute complaints. Denied fever, chills, headache, chest pain, abdominal pain, n/v/d/c, or urinary symptoms. He stated that in the past few days he was getting dizzy when he stood up to walk but reports that this is better today. He is due for cardiac cath on Sunday followed by pacemaker placement. Objective - Vital Signs/Intake and Output Vital Signs (last 24 hours): Temp Pulse Resp BP Pulse Ox 98 F 73 17 112/62 94 L 05/05/17 04:00 05/05/17 07:00 05/05/17 07:00 05/05/17 03:43 05/05/17 06:00 Intake and Output: 05/05/17 05/05/17 06:59 18:59 Intake Total 240 Output Total 800 Balance -560 - Medications Medications: Current Medications Amlodipine Besylate (Norvasc) 5 mg PO DAILY [facility] Last Admin: 05/04/17 09:59 Dose: 5 mg Folic Acid (Folic Acid) 1 mg PO DAILY [facility] Last Admin: 05/04/17 09:59 Dose: 1 mg Dextrose/Sodium Chloride (Dextrose 5%/0.9% Ns 1000 Ml) 1,000 mls @ 100 mls/hr IV .Q10H [facility] Last Admin: 05/04/17 14:00 Dose: Not Given Losartan Potassium (Cozaar) 25 mg PO DAILY [facility] Last Admin: 05/04/17 09:59 Dose: 25 mg Meclizine HCl (Antivert) 25 mg PO BID PRN PRN Reason: Dizziness Metoprolol Succinate (Toprol Xl) 25 mg PO DAILY [facility] Rosuvastatin Calcium (Crestor) 20 mg PO HS [facility] Last Admin: 05/04/17 21:06 Dose: 20 mg - Labs Labs: 05/05/17 06:19 05/05/17 06:14 PT 13.0 SECONDS (9.7-12.2) H 05/04/17 04:38 INR 1.2 05/04/17 04:38 APTT 33 SECONDS (21-34) 05/04/17 04:38 - Constitutional Appears: Non-toxic, No Acute Distress - Head Exam Head Exam: ATRAUMATIC, NORMAL INSPECTION - Eye Exam Eye Exam: EOMI, PERRL Pupil Exam: NORMAL ACCOMODATION - ENT Exam ENT Exam: Mucous Membranes Moist - Respiratory Exam Respiratory Exam: Clear to Ausculation Bilateral, NORMAL BREATHING PATTERN. absent: Respiratory Distress - Cardiovascular Exam Cardiovascular Exam: Bradycardia, REGULAR RHYTHM, +S1, +S2 - GI/Abdominal Exam GI & Abdominal Exam: Soft, Normal Bowel Sounds. absent: Distended, Firm, Guarding, Tenderness - Extremities Exam Extremities Exam: Normal Inspection. absent: Calf Tenderness, Pedal Edema - Back Exam Back Exam: NORMAL INSPECTION. absent: CVA tenderness (L), CVA tenderness (R), paraspinal tenderness - Neurological Exam Neurological Exam: Alert, Awake, Oriented x3 - Psychiatric Exam Psychiatric exam: Normal Affect, Normal Mood - Skin Skin Exam: Dry, Intact, Normal Color, Warm Assessment and Plan - Assessment and Plan (Free Text) Assessment: 81 year old male with a PMH of heart block and arthritis admitted on 05/04 for symptomatic bradycardia with EKG showing sinus rhythm with 1st degree AV block and RBBB: Plan: AV block Assessment and Plan: Dr. Kaplan's (Cardio) recommendations - Cardiac Cath on Sunday Plan with Dr. Enriquez pacemaker after cardiac cath on Sunday AV block findings consistent with second degree block. EKG showed sinus rhythm with 1st degree AV block and RBBB CXR showed cardiomegaly with calcification of aortic knob Echo report from 04/30/17: LVEF 65%, LV normal size with normal wall thickness. Refer to complete report Stress test report from 04/30/17: Normal with fair work capacity. Refer to complete report. Patient on Toprol XL (HELD), Norvasc and Crestor. Will begin Losartan [address] of Edarbi, will monitor BP Status: Acute Dizziness Assessment and Plan: Improving Likely secondary to AV block Meclizine 25 mg BID PRN Status: Acute Prophylactic measure Assessment and Plan: SCDS Lovenox 40mg SC daily - will hold on Sunday night for procedure on Sunday GI prophylaxis not indicated at this time. Status: Acute The patient verbalized to me that he has papers prepared by an deputy county attorney with his advanced directives stating he would like no extreme measures to be taken if his heart stops. He stated that he would like to be DNR/DNI and will have his family bring in his will. <Jeff Mcmillan - Last Filed: 05/05/17 18:23> Objective - Vital Signs/Intake and Output Vital Signs (last 24 hours): Temp Pulse Resp BP Pulse Ox 98.6 F 69 15 111/51 L 94 L 05/05/17 18:00 05/05/17 18:00 05/05/17 18:00 05/05/17 15:43 05/05/17 18:00 Intake and Output: 05/05/17 05/05/17 06:59 18:59 Intake Total 240 Output Total 800 750 Balance -560 -750 - Medications Medications: Current Medications Amlodipine Besylate (Norvasc) 5 mg PO DAILY [facility] Last Admin: 05/05/17 10:15 Dose: 5 mg Enoxaparin Sodium (Lovenox) 40 mg SC DAILY [facility] Last Admin: 05/05/17 10:15 Dose: 40 mg Folic Acid (Folic Acid) 1 mg PO DAILY [facility] Last Admin: 05/05/17 10:15 Dose: 1 mg Dextrose/Sodium Chloride (Dextrose 5%/0.9% Ns 1000 Ml) 1,000 mls @ 100 mls/hr IV .Q10H [facility] Last Admin: 05/04/17 14:00 Dose: Not Given Losartan Potassium (Cozaar) 25 mg PO DAILY [facility] Last Admin: 05/05/17 10:14 Dose: 25 mg Meclizine HCl (Antivert) 25 mg PO BID PRN PRN Reason: Dizziness Metoprolol Succinate (Toprol Xl) 25 mg PO DAILY [facility] Rosuvastatin Calcium (Crestor) 20 mg PO HS [facility] Last Admin: 05/04/17 21:06 Dose: 20 mg - Labs Labs: 05/05/17 06:19 05/05/17 06:14 PT 13.0 SECONDS (9.7-12.2) H 05/04/17 04:38 INR 1.2 05/04/17 04:38 APTT 33 SECONDS (21-34) 05/04/17 04:38 Attending/Attestation - Attestation I have personally seen and examined this patient.: Yes I have fully participated in the care of the patient.: Yes I have reviewed all pertinent clinical information, including history, physical exam and plan: Yes Notes (Text): 05/05/17 18:20 Patient was seen and examined at bedside with the resident at an patient is awake alert without any acute distress Denies any chest pain or palpitation Denies any dizziness Patient is awaiting the cardiac catheterization and pacemaker placement Continue to monitor on the telemetry unit Discussed the plan of care with the resident and agree with the history and physical and assessment/plan recommended above.
[2017-05-05] MEDS: Enoxaparin 40 mg Syringe SC SCH (10:15)
--- NOTE | 2017-05-05 11:40 | CP.PCM.PN ---
Subjective - Date & Time of Evaluation Date of Evaluation: 05/05/17 Time of Evaluation: 11:40 - Subjective Subjective: feeling fine denies any complaints HR stable awaiting coronary angiogram Objective - Vital Signs/Intake and Output Vital Signs (last 24 hours): Temp Pulse Resp BP Pulse Ox 98 F 73 17 112/62 94 L 05/05/17 04:00 05/05/17 07:00 05/05/17 07:00 05/05/17 03:43 05/05/17 06:00 Intake and Output: 05/05/17 05/05/17 06:59 18:59 Intake Total 240 Output Total 800 Balance -560 - Medications Medications: Current Medications Amlodipine Besylate (Norvasc) 5 mg PO DAILY [facility] Last Admin: 05/04/17 09:59 Dose: 5 mg Enoxaparin Sodium (Lovenox) 40 mg SC DAILY [facility] Folic Acid (Folic Acid) 1 mg PO DAILY [facility] Last Admin: 05/04/17 09:59 Dose: 1 mg Dextrose/Sodium Chloride (Dextrose 5%/0.9% Ns 1000 Ml) 1,000 mls @ 100 mls/hr IV .Q10H [facility] Last Admin: 05/04/17 14:00 Dose: Not Given Losartan Potassium (Cozaar) 25 mg PO DAILY [facility] Last Admin: 05/04/17 09:59 Dose: 25 mg Meclizine HCl (Antivert) 25 mg PO BID PRN PRN Reason: Dizziness Metoprolol Succinate (Toprol Xl) 25 mg PO DAILY [facility] Rosuvastatin Calcium (Crestor) 20 mg PO HS [facility] Last Admin: 05/04/17 21:06 Dose: 20 mg - Labs Labs: 05/05/17 06:19 05/05/17 06:14 PT 13.0 SECONDS (9.7-12.2) H 05/04/17 04:38 INR 1.2 05/04/17 04:38 APTT 33 SECONDS (21-34) 05/04/17 04:38 - Constitutional Appears: Well - Head Exam Head Exam: ATRAUMATIC, NORMAL INSPECTION, NORMOCEPHALIC - Eye Exam Eye Exam: EOMI, Normal appearance, PERRL Pupil Exam: NORMAL ACCOMODATION, PERRL - ENT Exam ENT Exam: Mucous Membranes Moist, Normal Exam - Neck Exam Neck Exam: Full ROM, Normal Inspection. absent: Lymphadenopathy - Respiratory Exam Respiratory Exam: Clear to Ausculation Bilateral, NORMAL BREATHING PATTERN - Cardiovascular Exam Cardiovascular Exam: REGULAR RHYTHM, +S1, +S2, Murmur - GI/Abdominal Exam GI & Abdominal Exam: Soft, Normal Bowel Sounds. absent: Tenderness - Rectal Exam Rectal Exam: NORMAL INSPECTION - Extremities Exam Extremities Exam: Full ROM, Normal Capillary Refill, Normal Inspection. absent : Joint Swelling, Pedal Edema - Back Exam Back Exam: NORMAL INSPECTION - Neurological Exam Neurological Exam: Alert, Awake, CN II-XII Intact, Normal Gait, Oriented x3 - Psychiatric Exam Psychiatric exam: Normal Affect, Normal Mood - Skin Skin Exam: Dry, Intact, Normal Color, Warm Assessment and Plan (1) AV block Assessment & Plan: plan for coronary angiogram hold av blockers Status: Acute (2) Bradycardia Assessment & Plan: EP eval telemetry Status: Acute (3) Dizziness Status: Acute (4) HTN (hypertension) Assessment & Plan: cont arb and ccb Status: Acute
[2017-05-06 06:42] LABS: BASO % 0.6 % (0.0-2.0); EOS # 0.3 K/uL (0.0-0.7); EOS % 3.7 % (0.0-4.0); HEMATOCRIT 41.5 % (35.0-51.0); LYMPH # 3.2 K/uL (1.0-4.3); LYMPH % 42.4 % (20.0-40.0); MEAN CELL VOLUME 87.1 fL (80.0-94.0); MEAN CORPUSCULAR HEMOGLOBIN 30.4 pg (27.0-31.0); MEAN CORPUSCULAR HGB CONC 34.9 g/dL (33.0-37.0); MEAN PLATELET VOLUME 7.3 fL (7.2-11.7); MONO # 0.7 K/uL (0.0-0.8); MONO % 9.2 % (0.0-10.0); NRBC % 0.1 % (0.0-2.0); RED CELL DISTRIBUTION WIDTH 13.6 % (11.5-14.5); WHITE BLOOD COUNT 7.7 K/uL (4.8-10.8)
[2017-05-06 06:49] LABS: ALB/GLOB RATIO 1.2 (1.0-2.1); ALKALINE PHOSPHATASE 55 U/L (38-126); ALT/SGPT 40 U/L (21-72); AST/SGOT 35 U/L (17-59); BILIRUBIN,TOTAL 0.9 mg/dL (0.2-1.3); BLOOD UREA NITROGEN 16 mg/dL (9-20); CALCIUM 8.9 mg/dl (8.6-10.4); CARBON DIOXIDE 23 mmol/L (22-30); CHLORIDE 102 mmol/L (98-107); GFR AFRICAN-AMERICAN > 60; GLUCOSE,RANDOM 92 mg/dL (75-110); MAGNESIUM 2.3 mg/dL (1.6-2.3); PHOSPHOROUS 3.3 mg/dL (2.5-4.5); SODIUM 138 mmol/L (132-148); TOTAL PROTEIN 6.7 g/dL (6.3-8.3)
--- NOTE | 2017-05-06 07:01 | CP.PCM.PN ---
<Juana Shane - Last Filed: 05/06/17 12:11> Subjective - Date & Time of Evaluation Date of Evaluation: 05/06/17 Time of Evaluation: 07:00 - Subjective Subjective: Medicine Note for Dr. Mcmillan Patient was seen and examined at bedside. No acute complaints. Denied fever, chills, headache, chest pain, abdominal pain, n/v/d/c, or urinary symptoms. He is due for cardiac cath on Sunday followed by pacemaker placement on Sunday. NPO after midnight and hold Levonox. Objective - Vital Signs/Intake and Output Vital Signs (last 24 hours): Temp Pulse Resp BP Pulse Ox 98.2 F 53 L 15 111/82 94 L 05/06/17 06:00 05/06/17 03:43 05/06/17 03:43 05/06/17 03:43 05/06/17 03:43 Intake and Output: 05/06/17 05/06/17 06:59 18:59 Intake Total 300 Output Total 400 Balance -100 - Medications Medications: Current Medications Amlodipine Besylate (Norvasc) 5 mg PO DAILY [facility] Last Admin: 05/05/17 10:15 Dose: 5 mg Enoxaparin Sodium (Lovenox) 40 mg SC DAILY [facility] Last Admin: 05/05/17 10:15 Dose: 40 mg Folic Acid (Folic Acid) 1 mg PO DAILY [facility] Last Admin: 05/05/17 10:15 Dose: 1 mg Dextrose/Sodium Chloride (Dextrose 5%/0.9% Ns 1000 Ml) 1,000 mls @ 100 mls/hr IV .Q10H [facility] Last Admin: 05/04/17 14:00 Dose: Not Given Losartan Potassium (Cozaar) 25 mg PO DAILY [facility] Last Admin: 05/05/17 10:14 Dose: 25 mg Meclizine HCl (Antivert) 25 mg PO BID PRN PRN Reason: Dizziness Metoprolol Succinate (Toprol Xl) 25 mg PO DAILY [facility] Rosuvastatin Calcium (Crestor) 20 mg PO HS [facility] Last Admin: 05/05/17 22:42 Dose: 20 mg - Labs Labs: 05/06/17 06:31 05/06/17 06:31 PT 13.0 SECONDS (9.7-12.2) H 05/04/17 04:38 INR 1.2 05/04/17 04:38 APTT 33 SECONDS (21-34) 05/04/17 04:38 - Constitutional Appears: Non-toxic, No Acute Distress - Head Exam Head Exam: ATRAUMATIC, NORMAL INSPECTION - Eye Exam Eye Exam: EOMI, Normal appearance, PERRL Pupil Exam: NORMAL ACCOMODATION - ENT Exam ENT Exam: Mucous Membranes Moist - Respiratory Exam Respiratory Exam: Clear to Ausculation Bilateral, NORMAL BREATHING PATTERN. absent: Rales, Rhonchi, Wheezes, Respiratory Distress - Cardiovascular Exam Cardiovascular Exam: Bradycardia, REGULAR RHYTHM, +S1, +S2 - GI/Abdominal Exam GI & Abdominal Exam: Soft, Normal Bowel Sounds. absent: Distended, Firm, Guarding, Tenderness - Extremities Exam Extremities Exam: Normal Inspection. absent: Calf Tenderness, Pedal Edema - Back Exam Back Exam: NORMAL INSPECTION. absent: CVA tenderness (L), CVA tenderness (R), paraspinal tenderness - Neurological Exam Neurological Exam: Awake, CN II-XII Intact, Normal Gait, Oriented x3 - Psychiatric Exam Psychiatric exam: Normal Affect, Normal Mood - Skin Skin Exam: Dry, Intact, Normal Color, Warm Assessment and Plan - Assessment and Plan (Free Text) Assessment: 81 year old male with a PMH of heart block and arthritis admitted on 05/04 for symptomatic bradycardia with EKG showing sinus rhythm with 1st degree AV block and RBBB: Plan: AV block Assessment and Plan: Dr. Kaplan's (Cardio) recommendations - Cardiac Cath on Sunday Plan with Dr. Enriquez pacemaker after cardiac cath on Sunday AV block findings consistent with second degree block. EKG showed sinus rhythm with 1st degree AV block and RBBB CXR showed cardiomegaly with calcification of aortic knob Echo report from 04/30/17: LVEF 65%, LV normal size with normal wall thickness. Refer to complete report Stress test report from 04/30/17: Normal with fair work capacity. Refer to complete report. Patient on Toprol XL (HELD), Norvasc and Crestor. Will begin Losartan [address] of Edarbi, will monitor BP Status: Acute Dizziness Assessment and Plan: Improving Likely secondary to AV block Meclizine 25 mg BID PRN Status: Acute Prophylactic measure Assessment and Plan: SCDS Lovenox 40mg SC daily - will hold after midnight GI prophylaxis not indicated at this time. NPO after midnight Status: Acute <Jeff Mcmillan - Last Filed: 05/06/17 15:29> Objective - Vital Signs/Intake and Output Vital Signs (last 24 hours): Temp Pulse Resp BP Pulse Ox 97.8 F 74 13 121/66 93 L 05/06/17 14:00 05/06/17 11:00 05/06/17 11:00 05/06/17 07:43 05/06/17 11:00 Intake and Output: 05/06/17 05/06/17 06:59 18:59 Intake Total 300 250 Output Total 400 400 Balance -100 -150 - Medications Medications: Current Medications Amlodipine Besylate (Norvasc) 5 mg PO DAILY [facility] Last Admin: 05/06/17 09:58 Dose: 5 mg Enoxaparin Sodium (Lovenox) 40 mg SC DAILY [facility] Last Admin: 05/06/17 09:59 Dose: 40 mg Folic Acid (Folic Acid) 1 mg PO DAILY [facility] Last Admin: 05/06/17 09:58 Dose: 1 mg Losartan Potassium (Cozaar) 25 mg PO DAILY [facility] Last Admin: 05/06/17 09:59 Dose: 25 mg Meclizine HCl (Antivert) 25 mg PO BID PRN PRN Reason: Dizziness Metoprolol Succinate (Toprol Xl) 25 mg PO DAILY [facility] Rosuvastatin Calcium (Crestor) 20 mg PO HS [facility] Last Admin: 05/05/17 22:42 Dose: 20 mg - Labs Labs: 05/06/17 06:31 05/06/17 06:31 PT 13.0 SECONDS (9.7-12.2) H 05/04/17 04:38 INR 1.2 05/04/17 04:38 APTT 33 SECONDS (21-34) 05/04/17 04:38 Attending/Attestation - Attestation I have personally seen and examined this patient.: Yes I have fully participated in the care of the patient.: Yes I have reviewed all pertinent clinical information, including history, physical exam and plan: Yes Notes (Text): 05/06/17 15:28 Patient was seen and examined at bedside with the resident Patient is comfortable with no complaints of dizziness or chest pain Patient denies any palpitation Plan for cardiac catheterization in the morning and subsequently patient will receive a pacemaker I discussed the plan of care with the resident and agree with the assessment plan recommended above.
--- NOTE | 2017-05-06 07:27 | CP.PCM.PN ---
Subjective - Date & Time of Evaluation Date of Evaluation: 05/06/17 Time of Evaluation: 07:27 - Subjective Subjective: tolerating po a little dizziness Objective - Vital Signs/Intake and Output Vital Signs (last 24 hours): Temp Pulse Resp BP Pulse Ox 98.2 F 53 L 15 111/82 94 L 05/06/17 06:00 05/06/17 03:43 05/06/17 03:43 05/06/17 03:43 05/06/17 03:43 Intake and Output: 05/06/17 05/06/17 06:59 18:59 Intake Total 300 Output Total 400 Balance -100 - Medications Medications: Current Medications Amlodipine Besylate (Norvasc) 5 mg PO DAILY [facility] Last Admin: 05/05/17 10:15 Dose: 5 mg Enoxaparin Sodium (Lovenox) 40 mg SC DAILY [facility] Last Admin: 05/05/17 10:15 Dose: 40 mg Folic Acid (Folic Acid) 1 mg PO DAILY [facility] Last Admin: 05/05/17 10:15 Dose: 1 mg Dextrose/Sodium Chloride (Dextrose 5%/0.9% Ns 1000 Ml) 1,000 mls @ 100 mls/hr IV .Q10H [facility] Last Admin: 05/04/17 14:00 Dose: Not Given Losartan Potassium (Cozaar) 25 mg PO DAILY [facility] Last Admin: 05/05/17 10:14 Dose: 25 mg Meclizine HCl (Antivert) 25 mg PO BID PRN PRN Reason: Dizziness Metoprolol Succinate (Toprol Xl) 25 mg PO DAILY [facility] Rosuvastatin Calcium (Crestor) 20 mg PO [facility] Last Admin: 05/05/17 22:42 Dose: 20 mg - Labs Labs: 05/06/17 06:31 05/06/17 06:31 PT 13.0 SECONDS (9.7-12.2) H 05/04/17 04:38 INR 1.2 05/04/17 04:38 APTT 33 SECONDS (21-34) 05/04/17 04:38 - Constitutional Appears: Non-toxic - Head Exam Head Exam: ATRAUMATIC - Eye Exam Eye Exam: Normal appearance - ENT Exam ENT Exam: Mucous Membranes Moist - Respiratory Exam Respiratory Exam: Clear to Ausculation Bilateral - Cardiovascular Exam Cardiovascular Exam: Bradycardia, Murmur - GI/Abdominal Exam GI & Abdominal Exam: Soft, Normal Bowel Sounds - Exam External exam: absent: Ecchymosis - Extremities Exam Extremities Exam: Normal Inspection - Neurological Exam Neurological Exam: Awake - Psychiatric Exam Psychiatric exam: Normal Mood - Skin Skin Exam: Dry Assessment and Plan (1) AV block Assessment & Plan: hr 53 av block ppm after cath Status: Acute (2) Bradycardia Status: Acute (3) Dizziness Status: Acute
[2017-05-06] MEDS: Enoxaparin 40 mg Syringe SC SCH (09:59)
[2017-05-07 07:42] LABS: BASO # 0.1 K/uL (0.0-0.2); BASO % 0.8 % (0.0-2.0); EOS # 0.3 K/uL (0.0-0.7); EOS % 3.2 % (0.0-4.0); HEMATOCRIT 44.4 % (35.0-51.0); LYMPH # 3.8 K/uL (1.0-4.3); MEAN CELL VOLUME 87.1 fL (80.0-94.0); MEAN CORPUSCULAR HEMOGLOBIN 29.6 pg (27.0-31.0); MEAN PLATELET VOLUME 7.4 fL (7.2-11.7); MONO # 0.9 K/uL (0.0-0.8); MONO % 9.9 % (0.0-10.0); NRBC % 0.1 % (0.0-2.0); WHITE BLOOD COUNT 8.9 K/uL (4.8-10.8)
[2017-05-07 07:49] LABS: INR 1.1
[2017-05-07 08:07] LABS: CHLORIDE 99 mmol/L (98-107); SODIUM 142 mmol/L (132-148)
[2017-05-07 08:08] LABS: POTASSIUM 4.1 mmol/L (3.6-5.2)
[2017-05-07 08:09] LABS: CARBON DIOXIDE 27 mmol/L (22-30); GFR AFRICAN-AMERICAN > 60
[2017-05-07 08:10] LABS: ALB/GLOB RATIO 1.2 (1.0-2.1); ALKALINE PHOSPHATASE 64 U/L (38-126); ALT/SGPT 43 U/L (21-72); AST/SGOT 36 U/L (17-59); BLOOD UREA NITROGEN 14 mg/dL (9-20); CALCIUM 9.2 mg/dl (8.6-10.4); GLUCOSE,RANDOM 97 mg/dL (75-110); PHOSPHOROUS 3.1 mg/dL (2.5-4.5); TOTAL PROTEIN 7.2 g/dL (6.3-8.3)
[2017-05-07 08:11] LABS: MAGNESIUM 2.1 mg/dL (1.6-2.3)
[2017-05-07] MEDS ORDERED: Midazolam 2 MG/2 ML VIAL ONE (08:11)
[2017-05-07] MEDS ORDERED: Iohexol 350mg/ml 100 ML ONE (08:12)
[2017-05-07] MEDS ORDERED: Nitroglycerin 50mg in D5W 50 MG/250 ML BOTTLE IV ONE (08:21)
[2017-05-07] MEDS ORDERED: Iohexol 350mgl/ml 50 ML ONE (08:39)
--- NOTE | 2017-05-07 13:52 | CP.PCM.PN ---
<Carolyn Wagoner - Last Filed: 05/07/17 13:50> Subjective - Date & Time of Evaluation Date of Evaluation: 05/07/17 Time of Evaluation: 07:00 - Subjective Subjective: Medicine Note for Dr. Trujillo Patient was seen and examined at bedside. No acute complaints. Denied fever, chills, headache, chest pain, abdominal pain, n/v/d/c, or urinary symptoms. He is due for cardiac cath on this morning with Dr. Kaplan, followed by pacemaker placement on Sunday. NPO after midnight and hold Levonox. Objective - Vital Signs/Intake and Output Vital Signs (last 24 hours): Temp Pulse Resp BP Pulse Ox 97.6 F 58 L 18 128/71 96 05/07/17 11:30 05/07/17 11:30 05/07/17 11:30 05/07/17 11:30 05/07/17 11:30 Intake and Output: 05/07/17 05/07/17 06:59 18:59 Intake Total 100 Output Total 550 Balance -450 - Medications Medications: Current Medications Amlodipine Besylate (Norvasc) 5 mg PO DAILY [facility] Last Admin: 05/07/17 11:30 Dose: Not Given Enoxaparin Sodium (Lovenox) 40 mg SC DAILY [facility] Last Admin: 05/06/17 09:59 Dose: 40 mg Folic Acid (Folic Acid) 1 mg PO DAILY [facility] Last Admin: 05/07/17 11:30 Dose: 1 mg Losartan Potassium (Cozaar) 25 mg PO DAILY [facility] Last Admin: 05/07/17 11:30 Dose: 25 mg Meclizine HCl (Antivert) 25 mg PO BID PRN PRN Reason: Dizziness Metoprolol Succinate (Toprol Xl) 25 mg PO DAILY [facility] Rosuvastatin Calcium (Crestor) 20 mg PO HS [facility] Last Admin: 05/06/17 21:35 Dose: 20 mg - Labs Labs: 05/07/17 07:20 05/07/17 07:20 PT 13.0 SECONDS (9.7-12.2) H 05/07/17 07:20 INR 1.1 05/07/17 07:20 APTT 32 SECONDS (21-34) 05/07/17 07:20 - Constitutional Appears: No Acute Distress - Head Exam Head Exam: NORMAL INSPECTION, NORMOCEPHALIC - Eye Exam Eye Exam: EOMI, Normal appearance, PERRL Pupil Exam: NORMAL ACCOMODATION - ENT Exam ENT Exam: Mucous Membranes Moist, Normal Exam - Neck Exam Neck Exam: Normal Inspection - Respiratory Exam Respiratory Exam: Clear to Ausculation Bilateral, NORMAL BREATHING PATTERN. absent: Wheezes - Cardiovascular Exam Cardiovascular Exam: REGULAR RHYTHM, RRR, +S1, +S2 - GI/Abdominal Exam GI & Abdominal Exam: Soft, Normal Bowel Sounds. absent: Distended, Tenderness - Extremities Exam Extremities Exam: Normal Inspection. absent: Pedal Edema, Tenderness - Neurological Exam Neurological Exam: Alert, Awake, Oriented x3 - Psychiatric Exam Psychiatric exam: Normal Affect, Normal Mood - Skin Skin Exam: Dry, Intact, Normal Color, Warm Assessment and Plan - Assessment and Plan (Free Text) Plan: AV block Assessment and Plan: Dr. Kaplan's (Cardio) recommendations - Cardiac Cath on Sunday Plan with Dr. Enriquez pacemaker after cardiac cath on Sunday AV block findings consistent with second degree block. EKG showed sinus rhythm with 1st degree AV block and RBBB CXR showed cardiomegaly with calcification of aortic knob Echo report from 04/30/17: LVEF 65%, LV normal size with normal wall thickness. Refer to complete report Stress test report from 04/30/17: Normal with fair work capacity. Refer to complete report. Patient on Toprol XL (HELD), Norvasc and Crestor. Will begin Losartan [address] of Edarbi, will monitor BP Status: Acute Dizziness Assessment and Plan: Improving Likely secondary to AV block Meclizine 25 mg BID PRN Status: Acute Prophylactic measure Assessment and Plan: SCDS Lovenox 40mg SC daily - will hold after midnight GI prophylaxis not indicated at this time. NPO after midnight Status: Acute DW Ciaran Tabor DO, PGY-1 <Mata Trujillo - Last Filed: 05/07/17 17:03> Objective - Vital Signs/Intake and Output Vital Signs (last 24 hours): Temp Pulse Resp BP Pulse Ox 97.5 F L 64 20 123/77 97 05/07/17 15:58 05/07/17 15:58 05/07/17 15:58 05/07/17 15:58 05/07/17 15:58 Intake and Output: 05/07/17 05/07/17 06:59 18:59 Intake Total 100 220 Output Total 550 200 Balance -450 20 - Medications Medications: Current Medications Amlodipine Besylate (Norvasc) 5 mg PO DAILY [facility] Last Admin: 05/07/17 11:30 Dose: Not Given Enoxaparin Sodium (Lovenox) 40 mg SC DAILY [facility] Last Admin: 05/06/17 09:59 Dose: 40 mg Folic Acid (Folic Acid) 1 mg PO DAILY [facility] Last Admin: 05/07/17 11:30 Dose: 1 mg Losartan Potassium (Cozaar) 25 mg PO DAILY [facility] Last Admin: 05/07/17 11:30 Dose: 25 mg Meclizine HCl (Antivert) 25 mg PO BID PRN PRN Reason: Dizziness Metoprolol Succinate (Toprol Xl) 25 mg PO DAILY [facility] Rosuvastatin Calcium (Crestor) 20 mg PO HS [facility] Last Admin: 05/06/17 21:35 Dose: 20 mg - Labs Labs: 05/07/17 07:20 05/07/17 07:20 PT 13.0 SECONDS (9.7-12.2) H 05/07/17 07:20 INR 1.1 05/07/17 07:20 APTT 32 SECONDS (21-34) 05/07/17 07:20 Attending/Attestation - Attestation I have personally seen and examined this patient.: Yes I have fully participated in the care of the patient.: Yes I have reviewed all pertinent clinical information, including history, physical exam and plan: Yes Notes (Text): 05/07/17 17:01 Medical attending: Patient was seen and examined by me, agrees the above note by emergency medical service manager. When I saw the patient he just returned from getting cardiac cath from what has been able to gather it appears that the patient will likely need a stent some time tomorrow before he gets pacemaker however I'm still waiting on the official word from cardiology at this time The patient states that he feels okay right now, he denied having chest pain, denied having shortness of breath, denied having any abdominal he also denied having any palpitations or sensations of skipped heartbeat per review of the telemetry he does have episodes where his heart rate decreases into the 40s. There was one observed drop beat is able to find on review the telemetry readings. However many times he appears to have a very prolonged GA segment. Thank you very much, Mata Trujillo
--- NOTE | 2017-05-07 14:28 | CP.PCM.PN ---
<SHAYNA LOCKHART - Last Filed: 05/07/17 14:23> Subjective - Date & Time of Evaluation Date of Evaluation: 05/07/17 Time of Evaluation: 10:00 - Subjective Subjective: Shayna Lockhart, PGY1, Progress Note for Dr. Enriquez: Pt seen and examined at bedside. No acute events overnight. Denies cp, f/c/n/c, abdominal pain. Objective - Vital Signs/Intake and Output Vital Signs (last 24 hours): Temp Pulse Resp BP Pulse Ox 97.6 F 58 L 18 128/71 96 05/07/17 11:30 05/07/17 11:30 05/07/17 11:30 05/07/17 11:30 05/07/17 11:30 Intake and Output: 05/07/17 05/07/17 06:59 18:59 Intake Total 100 Output Total 550 Balance -450 - Medications Medications: Current Medications Amlodipine Besylate (Norvasc) 5 mg PO DAILY [facility] Last Admin: 05/07/17 11:30 Dose: Not Given Enoxaparin Sodium (Lovenox) 40 mg SC DAILY [facility] Last Admin: 05/06/17 09:59 Dose: 40 mg Folic Acid (Folic Acid) 1 mg PO DAILY [facility] Last Admin: 05/07/17 11:30 Dose: 1 mg Losartan Potassium (Cozaar) 25 mg PO DAILY [facility] Last Admin: 05/07/17 11:30 Dose: 25 mg Meclizine HCl (Antivert) 25 mg PO BID PRN PRN Reason: Dizziness Metoprolol Succinate (Toprol Xl) 25 mg PO DAILY [facility] Rosuvastatin Calcium (Crestor) 20 mg PO [facility] Last Admin: 05/06/17 21:35 Dose: 20 mg - Labs Labs: 05/07/17 07:20 05/07/17 07:20 PT 13.0 SECONDS (9.7-12.2) H 05/07/17 07:20 INR 1.1 05/07/17 07:20 APTT 32 SECONDS (21-34) 05/07/17 07:20 - Constitutional Appears: No Acute Distress - Head Exam Head Exam: ATRAUMATIC, NORMOCEPHALIC - Eye Exam Eye Exam: PERRL - ENT Exam ENT Exam: Mucous Membranes Moist - Respiratory Exam Respiratory Exam: Clear to Ausculation Bilateral - Cardiovascular Exam Cardiovascular Exam: Bradycardia - GI/Abdominal Exam GI & Abdominal Exam: Soft, Normal Bowel Sounds. absent: Tenderness - Extremities Exam Extremities Exam: absent: Calf Tenderness, Pedal Edema - Neurological Exam Neurological Exam: Alert, Awake, Oriented x3 - Skin Skin Exam: Dry, Warm Assessment and Plan - Assessment and Plan (Free Text) Assessment: 81M with PMH HTN, HLD, admitted to the hospital for bradycardia and 2nd degree AV block, undergoing cardiac today. Will await for results. Bradycardia likely from myocardial ischemia. Consider for LINQ monitor placement tomorrow. Plan: Dizziness 2/2 likely 2nd degree AV block: - Holter monitor at home showed multiple pauses of 3.5 secs and 2nd degree AV block type 1 and type 2. - EKG 05/03 showed HR 86, sinus rhythm with 1st degree AV block and RBBB - CXR 05/03 showed cardiomegaly with calcification of aortic knob - Echo report from 04/30/17: LVEF 65%, no valvular abnormalities, No LVH. - Exercise Stress test 04/30/17: Normal, no ekg changes, fair work capacity. - C/w Norvasc, Crestor, losartan. Will Hold Toprol, in view of bradycardia. - Undergoing cardiac cath today with Dr. Kaplan, f/u results. - Consider LINQ monitor tomorrow for monitoring of HR and rhythm - likely tomorrow. Discussed with attending, Dr. Enriquez. Shayna Lockhart, PGY1 <Tiana Enriquez - Last Filed: 05/09/17 15:27> Objective - Vital Signs/Intake and Output Vital Signs (last 24 hours): Temp Pulse Resp BP Pulse Ox 97.8 F 61 18 136/76 97 05/09/17 07:35 05/09/17 07:35 05/09/17 07:35 05/09/17 07:35 05/09/17 07:35 Intake and Output: 05/09/17 05/09/17 06:59 18:59 Intake Total 620 Output Total 600 Balance 20 - Medications Medications: Current Medications Acetaminophen (Tylenol 325mg Tab) 650 mg PO Q6 PRN PRN Reason: Headache Amlodipine Besylate (Norvasc) 5 mg PO DAILY [facility] Last Admin: 05/09/17 10:53 Dose: 5 mg Enoxaparin Sodium (Lovenox) 40 mg SC DAILY [facility] Last Admin: 05/06/17 09:59 Dose: 40 mg Folic Acid (Folic Acid) 1 mg PO DAILY [facility] Last Admin: 05/09/17 10:53 Dose: 1 mg Losartan Potassium (Cozaar) 25 mg PO DAILY [facility] Last Admin: 05/09/17 10:53 Dose: 25 mg Meclizine HCl (Antivert) 25 mg PO BID PRN PRN Reason: Dizziness Metoprolol Succinate (Toprol Xl) 25 mg PO DAILY [facility] Rosuvastatin Calcium (Crestor) 20 mg PO [facility] Last Admin: 05/08/17 21:24 Dose: 20 mg - Labs Labs: 05/09/17 07:54 05/09/17 07:54 PT 13.0 SECONDS (9.7-12.2) H 05/07/17 07:20 INR 1.1 05/07/17 07:20 APTT 32 SECONDS (21-34) 05/07/17 07:20 Attending/Attestation - Attestation I have personally seen and examined this patient.: Yes I have fully participated in the care of the patient.: Yes I have reviewed all pertinent clinical information, including history, physical exam and plan: Yes Notes (Text): 05/09/17 15:26 echo nl ef mobitz II with eda in 30s for ppm
--- NOTE | 2017-05-08 07:00 | CP.PCM.DIS ---
<Carolyn Wagoner - Last Filed: 05/08/17 07:25> Provider - Provider Date of Admission: 05/03/17 18:10 Attending physician: Mata Trujillo DO Time Spent in preparation of Discharge (in minutes): 45 Hospital Course - Lab Results Lab Results: Micro Results 05/04/17 05:08 Nose MRSA Culture (Admit) - Final MRSA NOT DETECTED Most Recent Lab Values WBC 8.9 K/uL (4.8-10.8) 05/07/17 07:20 RBC 5.10 Mil/uL (4.40-5.90) 05/07/17 07:20 Hgb 15.1 g/dL (12.0-18.0) 05/07/17 07:20 Hct 44.4 % (35.0-51.0) 05/07/17 07:20 MCV 87.1 fL (80.0-94.0) 05/07/17 07:20 MCH 29.6 pg (27.0-31.0) 05/07/17 07:20 MCHC 34.0 g/dL (33.0-37.0) 05/07/17 07:20 RDW 14.0 % (11.5-14.5) 05/07/17 07:20 Plt Count 256 K/uL (130-400) 05/07/17 07:20 MPV 7.4 fL (7.2-11.7) 05/07/17 07:20 Neut % (Auto) 43.1 % (50.0-75.0) L 05/07/17 07:20 Lymph % (Auto) 43.0 % (20.0-40.0) H 05/07/17 07:20 Patrick % (Auto) 9.9 % (0.0-10.0) 05/07/17 07:20 Eos % (Auto) 3.2 % (0.0-4.0) 05/07/17 07:20 Baso % (Auto) 0.8 % (0.0-2.0) 05/07/17 07:20 Neut # 3.8 K/uL (1.8-7.0) 05/07/17 07:20 Lymph # 3.8 K/uL (1.0-4.3) 05/07/17 07:20 Patrick # 0.9 K/uL (0.0-0.8) H 05/07/17 07:20 Eos # 0.3 K/uL (0.0-0.7) 05/07/17 07:20 Baso # 0.1 K/uL (0.0-0.2) 05/07/17 07:20 PT 13.0 SECONDS (9.7-12.2) H 05/07/17 07:20 INR 1.1 05/07/17 07:20 APTT 32 SECONDS (21-34) 05/07/17 07:20 Sodium 142 mmol/L (132-148) 05/07/17 07:20 Potassium 4.1 mmol/L (3.6-5.2) 05/07/17 07:20 Chloride 99 mmol/L (98-107) 05/07/17 07:20 Carbon Dioxide 27 mmol/L (22-30) 05/07/17 07:20 Anion Gap 19 (10-20) 05/07/17 07:20 BUN 14 mg/dL (9-20) 05/07/17 07:20 Creatinine 1.0 MG/DL (0.8-1.5) 05/07/17 07:20 Est GFR ( Amer) > 60 05/07/17 07:20 Est GFR (Non-Af Amer) > 60 05/07/17 07:20 Random Glucose 97 mg/dL (75-110) 05/07/17 07:20 Hemoglobin A1c 6.0 % (4.2-6.5) 05/04/17 04:38 Calcium 9.2 mg/dl (8.6-10.4) 05/07/17 07:20 Phosphorus 3.1 mg/dL (2.5-4.5) 05/07/17 07:20 Magnesium 2.1 mg/dL (1.6-2.3) 05/07/17 07:20 Total Bilirubin 1.0 mg/dL (0.2-1.3) 05/07/17 07:20 AST 36 U/L (17-59) 05/07/17 07:20 ALT 43 U/L (21-72) 05/07/17 07:20 Alkaline Phosphatase 64 U/L (38-126) 05/07/17 07:20 Total Protein 7.2 g/dL (6.3-8.3) 05/07/17 07:20 Albumin 3.9 g/dL (3.5-5.0) 05/07/17 07:20 Globulin 3.4 gm/dL (2.2-3.9) 05/07/17 07:20 Albumin/Globulin Ratio 1.2 (1.0-2.1) 05/07/17 07:20 Triglycerides 161 mg/dL (0-149) H 05/04/17 04:38 Cholesterol 126 mg/dL (0-199) 05/04/17 04:38 LDL Cholesterol Direct 68 mg/dL (0-129) 05/04/17 04:38 HDL Cholesterol 36 mg/dL (30-70) 05/04/17 04:38 Thyroxine (T4) 6.42 ug/dL (5.5-11.0) 05/04/17 04:38 TSH 3rd Generation 2.17 mIU/L (0.46-4.68) 05/04/17 04:38 Blood Type O NEGATIVE 05/03/17 18:08 Antibody Screen Negative 05/03/17 18:08 - Hospital Course Hospital Course: Upon Admission: Patient was seen and examined at approximately 20:20PM on 05/03/17. 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 Patient began experiencing dizziness approximately two weeks ago. He went to see his PMD Dr. Pineda who recommended a holter monitor. The findings of the monitor were significant for second degree AV block. Patient was thus referred to see Eye Specialist Dr. Kaplan for pacemaker placement. Today, patient states that he does not have any complaints. He specifically denies subjective fevers or chills, chest pain, palpitations, weakness, headaches, nausea, vomiting, changes in bowels, recent weight changes at this time. PMHx- as noted above PSHx- prostate procedure 25 years ago. Patient states that they " took a scrape " Fam Hx- Dad at the age of 96 of an MA; Mother diagnosed with Alzhiemer's at 89. at the age of 93 Social Hx- Smoked 1 ppd from the age of 16 to the age of 39; drinks a glass of red wine frequently; denies illicit drug use Meds- Folic acid 1 mg daily, toprol XL 25 mg daily, meclizine 25 mg PO BID, Norvasc 5 mg daily, Edarbi ( azilsartan medoxomil) 40 mg daily, Crestor 20 mg at night Allergies- NKDA PMD: Dr. Yury Pineda Throughout Hospital Course: Patient was admitted for 2nd degree AV Block. He was monitored on telemetry and evaluated by an election clerk Dr. Kaplan and EP Eye Specialist, Dr. Rios. Patient underwent a cardiac catherization, which required placement of a stent. He is to be transferred to [place] for insertion of the stent. Patient will then have a pacemaker inserted by Dr. Enriquez, shortly after. Patient is to continue current home medications. This is a short summary of the patient's hospital course, please evaluate EMR for full record. Discharge Exam - Head Exam Head Exam: ATRAUMATIC, NORMOCEPHALIC - Eye Exam Eye Exam: EOMI, Normal appearance, PERRL - ENT Exam ENT Exam: Normal Exam - Respiratory Exam Respiratory Exam: Clear to PA & Lateral, NORMAL BREATHING PATTERN. absent: Wheezes - Cardiovascular Exam Cardiovascular Exam: REGULAR RHYTHM, RRR, +S1, +S2 - GI/Abdominal Exam GI & Abdominal Exam: Normal Bowel Sounds, Soft. absent: Distended, Tenderness - Extremities Exam Extremities exam: normal inspection, pedal pulses present - Neurological Exam Neurological exam: Alert, Oriented x3 - Psychiatric Exam Psychiatric exam: Normal Affect, Normal Mood - Skin Skin Exam: Dry, Intact, Normal Color, Warm Discharge Plan - Follow Up Plan Condition: STABLE Disposition: Trans to Other Acute Care Hosp Instructions: Pacemaker (GEN) Additional Instructions: Patient is to continue taking current medications except metoprolol XL due to his bradycardia. Patient is to follow up recommendations for resuming the beta deidra with Cardiology. Patient is to follow up with PMD in 1 week after stent and pacemaker placement. Patient is to follow up with a Eye Specialist in 1 week after stent and pacemaker placement. Please return to the ED if your symptoms return. <Mata Trujillo - Last Filed: 05/08/17 12:07> Provider - Provider Date of Admission: 05/03/17 18:10 Attending physician: Peter H Trujillo, DO Hospital Course - Lab Results Lab Results: Micro Results 05/04/17 05:08 Nose MRSA Culture (Admit) - Final MRSA NOT DETECTED Most Recent Lab Values WBC 7.5 K/uL (4.8-10.8) 05/08/17 07:16 RBC 4.97 Mil/uL (4.40-5.90) 05/08/17 07:16 Hgb 14.8 g/dL (12.0-18.0) 05/08/17 07:16 Hct 43.2 % (35.0-51.0) 05/08/17 07:16 MCV 86.9 fL (80.0-94.0) 05/08/17 07:16 MCH 29.7 pg (27.0-31.0) 05/08/17 07:16 MCHC 34.2 g/dL (33.0-37.0) 05/08/17 07:16 RDW 13.6 % (11.5-14.5) 05/08/17 07:16 Plt Count 230 K/uL (130-400) 05/08/17 07:16 MPV 7.5 fL (7.2-11.7) 05/08/17 07:16 Neut % (Auto) 49.0 % (50.0-75.0) L 05/08/17 07:16 Lymph % (Auto) 38.3 % (20.0-40.0) 05/08/17 07:16 Patrick % (Auto) 9.1 % (0.0-10.0) 05/08/17 07:16 Eos % (Auto) 2.8 % (0.0-4.0) 05/08/17 07:16 Baso % (Auto) 0.8 % (0.0-2.0) 05/08/17 07:16 Neut # 3.7 K/uL (1.8-7.0) 05/08/17 07:16 Lymph # 2.9 K/uL (1.0-4.3) 05/08/17 07:16 Patrick # 0.7 K/uL (0.0-0.8) 05/08/17 07:16 Eos # 0.2 K/uL (0.0-0.7) 05/08/17 07:16 Baso # 0.1 K/uL (0.0-0.2) 05/08/17 07:16 PT 13.0 SECONDS (9.7-12.2) H 05/07/17 07:20 INR 1.1 05/07/17 07:20 APTT 32 SECONDS (21-34) 05/07/17 07:20 Sodium 140 mmol/L (132-148) 05/08/17 07:16 Potassium 4.3 mmol/L (3.6-5.2) 05/08/17 07:16 Chloride 99 mmol/L (98-107) 05/08/17 07:16 Carbon Dioxide 26 mmol/L (22-30) 05/08/17 07:16 Anion Gap 19 (10-20) 05/08/17 07:16 BUN 17 mg/dL (9-20) 05/08/17 07:16 Creatinine 1.0 MG/DL (0.8-1.5) 05/08/17 07:16 Est GFR ( Amer) > 60 05/08/17 07:16 Est GFR (Non-Af Amer) > 60 05/08/17 07:16 Random Glucose 101 mg/dL (75-110) 05/08/17 07:16 Hemoglobin A1c 6.0 % (4.2-6.5) 05/04/17 04:38 Calcium 8.6 mg/dl (8.6-10.4) 05/08/17 07:16 Phosphorus 2.9 mg/dL (2.5-4.5) 05/08/17 07:16 Magnesium 2.1 mg/dL (1.6-2.3) 05/08/17 07:16 Total Bilirubin 1.1 mg/dL (0.2-1.3) 05/08/17 07:16 AST 38 U/L (17-59) 05/08/17 07:16 ALT 42 U/L (21-72) 05/08/17 07:16 Alkaline Phosphatase 63 U/L (38-126) 05/08/17 07:16 Total Protein 7.1 g/dL (6.3-8.3) 05/08/17 07:16 Albumin 3.8 g/dL (3.5-5.0) 05/08/17 07:16 Globulin 3.3 gm/dL (2.2-3.9) 05/08/17 07:16 Albumin/Globulin Ratio 1.1 (1.0-2.1) 05/08/17 07:16 Triglycerides 161 mg/dL (0-149) H 05/04/17 04:38 Cholesterol 126 mg/dL (0-199) 05/04/17 04:38 LDL Cholesterol Direct 68 mg/dL (0-129) 05/04/17 04:38 HDL Cholesterol 36 mg/dL (30-70) 05/04/17 04:38 Thyroxine (T4) 6.42 ug/dL (5.5-11.0) 05/04/17 04:38 TSH 3rd Generation 2.17 mIU/L (0.46-4.68) 05/04/17 04:38 Blood Type O NEGATIVE 05/03/17 18:08 Antibody Screen Negative 05/03/17 18:08 Attending/Attestation - Attestation I have personally seen and examined this patient.: Yes I have fully participated in the care of the patient.: Yes I have reviewed all pertinent clinical information, including history, physical exam and plan: Yes Notes (Text): 05/08/17 12:06 Medical Attending: Patient was not seen today. The patient was already moved to [place] for potential cardiac stenting. Jan [facility] thank you Mata Trujillo
[2017-05-08 07:31] LABS: BASO # 0.1 K/uL (0.0-0.2); BASO % 0.8 % (0.0-2.0); EOS # 0.2 K/uL (0.0-0.7); EOS % 2.8 % (0.0-4.0); HEMATOCRIT 43.2 % (35.0-51.0); LYMPH # 2.9 K/uL (1.0-4.3); LYMPH % 38.3 % (20.0-40.0); MEAN CELL VOLUME 86.9 fL (80.0-94.0); MEAN CORPUSCULAR HEMOGLOBIN 29.7 pg (27.0-31.0); MEAN CORPUSCULAR HGB CONC 34.2 g/dL (33.0-37.0); MEAN PLATELET VOLUME 7.5 fL (7.2-11.7); MONO # 0.7 K/uL (0.0-0.8); MONO % 9.1 % (0.0-10.0); NRBC % 0.1 % (0.0-2.0); RED CELL DISTRIBUTION WIDTH 13.6 % (11.5-14.5); WHITE BLOOD COUNT 7.5 K/uL (4.8-10.8)
[2017-05-08 08:31] LABS: CHLORIDE 99 mmol/L (98-107)
[2017-05-08 08:32] LABS: POTASSIUM 4.3 mmol/L (3.6-5.2); SODIUM 140 mmol/L (132-148)
[2017-05-08 08:34] LABS: ALB/GLOB RATIO 1.1 (1.0-2.1); ALKALINE PHOSPHATASE 63 U/L (38-126); AST/SGOT 38 U/L (17-59); BILIRUBIN,TOTAL 1.1 mg/dL (0.2-1.3); CARBON DIOXIDE 26 mmol/L (22-30); GFR AFRICAN-AMERICAN > 60; TOTAL PROTEIN 7.1 g/dL (6.3-8.3)
[2017-05-08 08:35] LABS: ALT/SGPT 42 U/L (21-72); BLOOD UREA NITROGEN 17 mg/dL (9-20); CALCIUM 8.6 mg/dl (8.6-10.4); GLUCOSE,RANDOM 101 mg/dL (75-110); MAGNESIUM 2.1 mg/dL (1.6-2.3); PHOSPHOROUS 2.9 mg/dL (2.5-4.5)
--- NOTE | 2017-05-08 18:50 | CP.PCM.PN ---
Subjective - Date & Time of Evaluation Date of Evaluation: 05/08/17 Time of Evaluation: 18:50 - Subjective Subjective: s/p coronary angiogram with IVUS of LAD and RCA at [facility] earlier today Severely calcified LAD which will require atherectomy with impella support no complaints radial site intact with good pulses Objective - Vital Signs/Intake and Output Vital Signs (last 24 hours): Temp Pulse Resp BP Pulse Ox 98.4 F 71 16 164/82 H 96 05/08/17 18:14 05/08/17 18:14 05/08/17 18:14 05/08/17 18:14 05/08/17 18:14 - Medications Medications: Current Medications Amlodipine Besylate (Norvasc) 5 mg PO DAILY [facility] Last Admin: 05/08/17 10:30 Dose: Not Given Enoxaparin Sodium (Lovenox) 40 mg SC DAILY [facility] Last Admin: 05/06/17 09:59 Dose: 40 mg Folic Acid (Folic Acid) 1 mg PO DAILY [facility] Last Admin: 05/08/17 10:30 Dose: Not Given Losartan Potassium (Cozaar) 25 mg PO DAILY [facility] Last Admin: 05/08/17 10:30 Dose: Not Given Meclizine HCl (Antivert) 25 mg PO BID PRN PRN Reason: Dizziness Metoprolol Succinate (Toprol Xl) 25 mg PO DAILY [facility] Rosuvastatin Calcium (Crestor) 20 mg PO HS [facility] Last Admin: 05/07/17 21:15 Dose: 20 mg - Labs Labs: 05/08/17 07:16 05/08/17 07:16 PT 13.0 SECONDS (9.7-12.2) H 05/07/17 07:20 INR 1.1 05/07/17 07:20 APTT 32 SECONDS (21-34) 05/07/17 07:20 - Constitutional Appears: Well - Head Exam Head Exam: ATRAUMATIC, NORMAL INSPECTION, NORMOCEPHALIC - Eye Exam Eye Exam: EOMI, Normal appearance, PERRL Pupil Exam: NORMAL ACCOMODATION, PERRL - ENT Exam ENT Exam: Mucous Membranes Moist, Normal Exam - Neck Exam Neck Exam: Full ROM, Normal Inspection. absent: Lymphadenopathy - Respiratory Exam Respiratory Exam: Clear to Ausculation Bilateral, NORMAL BREATHING PATTERN - Cardiovascular Exam Cardiovascular Exam: REGULAR RHYTHM, +S1, +S2. absent: Murmur - GI/Abdominal Exam GI & Abdominal Exam: Soft, Normal Bowel Sounds. absent: Tenderness - Rectal Exam Rectal Exam: NORMAL INSPECTION - Extremities Exam Extremities Exam: Full ROM, Normal Capillary Refill, Normal Inspection. absent : Joint Swelling, Pedal Edema - Back Exam Back Exam: NORMAL INSPECTION - Neurological Exam Neurological Exam: Alert, Awake, CN II-XII Intact, Normal Gait, Oriented x3 - Psychiatric Exam Psychiatric exam: Normal Affect, Normal Mood - Skin Skin Exam: Dry, Intact, Normal Color, Warm Assessment and Plan (1) CAD (coronary artery disease) Status: Acute (2) AV block Status: Acute (3) Bradycardia Status: Acute (4) Dizziness Status: Acute (5) HTN (hypertension) Status: Acute (6) S/P coronary angiogram Status: Acute
--- NOTE | 2017-05-09 06:04 | CP.PCM.PN ---
Addendum entered and electronically signed by Carolyn Wagoner DO 05/09/17 11:24 : Pacemaker cancelled for today. Possibly done 05/10 or 05/11 pending OR availability. Resume HHD. Will be kept NPO tonight. Original Note: <Carolyn Wagoner - Last Filed: 05/09/17 06:11> Subjective - Date & Time of Evaluation Date of Evaluation: 05/09/17 Time of Evaluation: 07:00 - Subjective Subjective: Medicine Note for Dr. Trujillo Patient was seen and examined at bedside. No acute complaints. Denied fever, chills, headache, chest pain, abdominal pain, n/v/d/c, or urinary symptoms. Pacemaker today @ 2pm with Dr. Enriquez. NPO after breakfast and Levonox was held. Objective - Vital Signs/Intake and Output Vital Signs (last 24 hours): Temp Pulse Resp BP Pulse Ox 97.5 F L 64 20 136/74 97 05/09/17 04:00 05/09/17 04:06 05/09/17 04:00 05/09/17 04:00 05/09/17 04:00 Intake and Output: 05/08/17 05/09/17 18:59 06:59 Output Total 200 Balance -200 - Medications Medications: Current Medications Amlodipine Besylate (Norvasc) 5 mg PO DAILY [facility] Last Admin: 05/08/17 10:30 Dose: Not Given Enoxaparin Sodium (Lovenox) 40 mg SC DAILY [facility] Last Admin: 05/06/17 09:59 Dose: 40 mg Folic Acid (Folic Acid) 1 mg PO DAILY [facility] Last Admin: 05/08/17 10:30 Dose: Not Given Losartan Potassium (Cozaar) 25 mg PO DAILY [facility] Last Admin: 05/08/17 19:42 Dose: 25 mg Meclizine HCl (Antivert) 25 mg PO BID PRN PRN Reason: Dizziness Metoprolol Succinate (Toprol Xl) 25 mg PO DAILY [facility] Rosuvastatin Calcium (Crestor) 20 mg PO HS [facility] Last Admin: 05/08/17 21:24 Dose: 20 mg - Labs Labs: 05/08/17 07:16 05/08/17 07:16 PT 13.0 SECONDS (9.7-12.2) H 05/07/17 07:20 INR 1.1 05/07/17 07:20 APTT 32 SECONDS (21-34) 05/07/17 07:20 - Constitutional Appears: No Acute Distress - Head Exam Head Exam: NORMAL INSPECTION, NORMOCEPHALIC - Eye Exam Eye Exam: EOMI, Normal appearance, PERRL Pupil Exam: NORMAL ACCOMODATION - ENT Exam ENT Exam: Mucous Membranes Moist, Normal Exam - Neck Exam Neck Exam: Normal Inspection - Respiratory Exam Respiratory Exam: Clear to Ausculation Bilateral, NORMAL BREATHING PATTERN. absent: Decreased Breath Sounds, Wheezes - Cardiovascular Exam Cardiovascular Exam: REGULAR RHYTHM, RRR, +S1, +S2 - GI/Abdominal Exam GI & Abdominal Exam: Soft, Normal Bowel Sounds. absent: Distended, Tenderness - Extremities Exam Extremities Exam: Normal Inspection. absent: Pedal Edema, Tenderness - Back Exam Back Exam: NORMAL INSPECTION - Neurological Exam Neurological Exam: Alert, Awake, Oriented x3 - Psychiatric Exam Psychiatric exam: Normal Affect, Normal Mood - Skin Skin Exam: Dry, Intact, Normal Color, Warm Assessment and Plan - Assessment and Plan (Free Text) Plan: AV block Assessment and Plan: AV block findings consistent with second degree block. EKG showed sinus rhythm with 1st degree AV block and RBBB CXR showed cardiomegaly with calcification of aortic knob Echo report from 04/30/17: LVEF 65%, LV normal size with normal wall thickness. Refer to complete report Stress test report from 04/30/17: Normal with fair work capacity. Refer to complete report. Patient on Toprol XL (HELD), Norvasc and Crestor. Will begin Losartan [address] of Edarbi, will monitor BP Dr. Kaplan's (Cardio) recommendations - Cardiac Cath on Sunday. Patient was transported to [place] to have PCI on Sunday. As per Cardiology, due to extensive calcification, stent was unable to be placed. Patient will follow up with Dr. Kaplan as outpatient at [facility]. Plan with Dr. Enriquez pacemaker 05/09/17 @ 2pm here at [facility] [place]. Status: Acute Dizziness Assessment and Plan: Improving Likely secondary to AV block Meclizine 25 mg BID PRN Status: Acute Prophylactic measure Assessment and Plan: SCDS Lovenox 40mg SC daily - HELD due to pacemaker placement GI prophylaxis not indicated at this time. NPO after midnight Status: Acute DW Ciaran Tabor DO, PGY-1 <Mata Trujillo H - Last Filed: 05/09/17 14:37> Objective - Vital Signs/Intake and Output Vital Signs (last 24 hours): Temp Pulse Resp BP Pulse Ox 97.8 F 61 18 136/76 97 05/09/17 07:35 05/09/17 07:35 05/09/17 07:35 05/09/17 07:35 05/09/17 07:35 Intake and Output: 05/09/17 05/09/17 06:59 18:59 Intake Total 620 Output Total 600 Balance 20 - Medications Medications: Current Medications Acetaminophen (Tylenol 325mg Tab) 650 mg PO Q6 PRN PRN Reason: Headache Amlodipine Besylate (Norvasc) 5 mg PO DAILY [facility] Last Admin: 05/09/17 10:53 Dose: 5 mg Enoxaparin Sodium (Lovenox) 40 mg SC DAILY [facility] Last Admin: 05/06/17 09:59 Dose: 40 mg Folic Acid (Folic Acid) 1 mg PO DAILY [facility] Last Admin: 05/09/17 10:53 Dose: 1 mg Losartan Potassium (Cozaar) 25 mg PO DAILY [facility] Last Admin: 05/09/17 10:53 Dose: 25 mg Meclizine HCl (Antivert) 25 mg PO BID PRN PRN Reason: Dizziness Metoprolol Succinate (Toprol Xl) 25 mg PO DAILY [facility] Rosuvastatin Calcium (Crestor) 20 mg PO HS [facility] Last Admin: 05/08/17 21:24 Dose: 20 mg - Labs Labs: 05/09/17 07:54 05/09/17 07:54 PT 13.0 SECONDS (9.7-12.2) H 05/07/17 07:20 INR 1.1 05/07/17 07:20 APTT 32 SECONDS (21-34) 05/07/17 07:20 Attending/Attestation - Attestation I have personally seen and examined this patient.: Yes I have fully participated in the care of the patient.: Yes I have reviewed all pertinent clinical information, including history, physical exam and plan: Yes Notes (Text): Medical attending: Patient was seen and examined by me, agree with the above note by medical billing coder. We saw the patient earlier in the morning, he reported doing well he isn't have any complaints or chest pain overnight. Yesterday he had attempted placement of stenting however this was not possible. And he'll have to at some point follow- up at [facility] for this. Initially the plan was to have the patient get a pacemaker some time today however I was later notified that the said to be placed on hold. Thank you very much, Mata Trujillo
[2017-05-09 08:07] LABS: BASO % 0.7 % (0.0-2.0); EOS # 0.4 K/uL (0.0-0.7); EOS % 5.7 % (0.0-4.0); HEMATOCRIT 42.3 % (35.0-51.0); LYMPH # 2.2 K/uL (1.0-4.3); LYMPH % 29.3 % (20.0-40.0); MEAN CELL VOLUME 86.6 fL (80.0-94.0); MEAN CORPUSCULAR HEMOGLOBIN 29.9 pg (27.0-31.0); MEAN CORPUSCULAR HGB CONC 34.5 g/dL (33.0-37.0); MEAN PLATELET VOLUME 7.3 fL (7.2-11.7); MONO # 0.7 K/uL (0.0-0.8); MONO % 10.1 % (0.0-10.0); NRBC % 0.1 % (0.0-2.0); RED CELL DISTRIBUTION WIDTH 14.1 % (11.5-14.5); WHITE BLOOD COUNT 7.4 K/uL (4.8-10.8)
[2017-05-09 08:31] LABS: CHLORIDE 104 mmol/L (98-107)
[2017-05-09 08:32] LABS: POTASSIUM 3.9 mmol/L (3.6-5.2); SODIUM 139 mmol/L (132-148)
[2017-05-09 08:34] LABS: ALB/GLOB RATIO 1.2 (1.0-2.1); ALKALINE PHOSPHATASE 58 U/L (38-126); AST/SGOT 32 U/L (17-59); BILIRUBIN,TOTAL 0.9 mg/dL (0.2-1.3); BLOOD UREA NITROGEN 11 mg/dL (9-20); CARBON DIOXIDE 24 mmol/L (22-30); GFR AFRICAN-AMERICAN > 60; GLUCOSE,RANDOM 100 mg/dL (75-110); TOTAL PROTEIN 6.5 g/dL (6.3-8.3)
[2017-05-09 08:35] LABS: ALT/SGPT 44 U/L (21-72); CALCIUM 8.8 mg/dl (8.6-10.4); MAGNESIUM 2.1 mg/dL (1.6-2.3); PHOSPHOROUS 2.8 mg/dL (2.5-4.5)
--- NOTE | 2017-05-09 09:51 | CP.PCM.PN ---
<TIFFANY LOCKHART - Last Filed: 05/09/17 09:47> Subjective - Date & Time of Evaluation Date of Evaluation: 05/09/17 Time of Evaluation: 09:47 - Subjective Subjective: Tiffany Lockhart, PGY1, Progress Note for Dr. Enriquez: Pt seen and examined at bedside. Pt transferred back to [facility] yesterday from [facility], as pt could not undergo stent placement due to extensive calcification. Pt scheduled for PPM tomorrow or Sunday, depending on OR schedule. No acute events overnight. Pt denies cp, sob, n/v/d, f/c, abdominal pain. Objective - Vital Signs/Intake and Output Vital Signs (last 24 hours): Temp Pulse Resp BP Pulse Ox 97.8 F 61 18 136/76 97 05/09/17 07:35 05/09/17 07:35 05/09/17 07:35 05/09/17 07:35 05/09/17 07:35 Intake and Output: 05/09/17 05/09/17 06:59 18:59 Intake Total 620 Output Total 600 Balance 20 - Medications Medications: Current Medications Acetaminophen (Tylenol 325mg Tab) 650 mg PO Q6 PRN PRN Reason: Headache Amlodipine Besylate (Norvasc) 5 mg PO DAILY [facility] Last Admin: 05/08/17 10:30 Dose: Not Given Enoxaparin Sodium (Lovenox) 40 mg SC DAILY [facility] Last Admin: 05/06/17 09:59 Dose: 40 mg Folic Acid (Folic Acid) 1 mg PO DAILY [facility] Last Admin: 05/08/17 10:30 Dose: Not Given Losartan Potassium (Cozaar) 25 mg PO DAILY [facility] Last Admin: 05/08/17 19:42 Dose: 25 mg Meclizine HCl (Antivert) 25 mg PO BID PRN PRN Reason: Dizziness Metoprolol Succinate (Toprol Xl) 25 mg PO DAILY [facility] Rosuvastatin Calcium (Crestor) 20 mg PO HS [facility] Last Admin: 05/08/17 21:24 Dose: 20 mg - Labs Labs: 05/09/17 07:54 05/09/17 07:54 PT 13.0 SECONDS (9.7-12.2) H 05/07/17 07:20 INR 1.1 05/07/17 07:20 APTT 32 SECONDS (21-34) 05/07/17 07:20 - Constitutional Appears: No Acute Distress - Head Exam Head Exam: ATRAUMATIC, NORMOCEPHALIC - Eye Exam Eye Exam: PERRL - Cardiovascular Exam Cardiovascular Exam: RRR, +S1, +S2. absent: Murmur - GI/Abdominal Exam GI & Abdominal Exam: Soft, Normal Bowel Sounds. absent: Tenderness - Neurological Exam Neurological Exam: Alert, Awake, Oriented x3 - Psychiatric Exam Psychiatric exam: Normal Mood - Skin Skin Exam: Dry, Normal Color, Warm Assessment and Plan - Assessment and Plan (Free Text) Assessment: 81M with PMH HTN, HLD, admitted to the hospital for bradycardia and 2nd degree AV block. Cardiac cath (with Dr. Gilliam) positive for blockage, could not undergo stent placement at [facility] due to extensive calcifications, will have PPM placement on or Sunday, pending OR availability. Plan: Dizziness 2/2 likely 2nd degree AV block: - Holter monitor at home showed multiple pauses of 3.5 secs and 2nd degree AV block type 1 and type 2. - EKG 05/03 showed HR 86, sinus rhythm with 1st degree AV block and RBBB - CXR 05/03 showed cardiomegaly with calcification of aortic knob - Echo report from 04/30/17: LVEF 65%, no valvular abnormalities, No LVH. - Exercise Stress test 04/30/17: Normal, no ekg changes, fair work capacity. - C/w Norvasc, Crestor, losartan. Will Hold Toprol, in view of bradycardia. - Cardiac cath 05/08 (Dr gilliam) + for blockage, f/u results. Could not undergo angioplasty at [facility] due to extensive calcification. Will f/u with Dr. Gilliam as outpatient at [facility]. - PPM placement with Dr. Enriquez tomorrow or Sunday, pending OR availability. Discussed with attending, Dr. Enriquez. Tiffany Lockhart, PGY1 <Tiana Enriquez - Last Filed: 05/09/17 15:26> Objective - Vital Signs/Intake and Output Vital Signs (last 24 hours): Temp Pulse Resp BP Pulse Ox 97.8 F 61 18 136/76 97 05/09/17 07:35 05/09/17 07:35 05/09/17 07:35 05/09/17 07:35 05/09/17 07:35 Intake and Output: 05/09/17 05/09/17 06:59 18:59 Intake Total 620 Output Total 600 Balance 20 - Medications Medications: Current Medications Acetaminophen (Tylenol 325mg Tab) 650 mg PO Q6 PRN PRN Reason: Headache Amlodipine Besylate (Norvasc) 5 mg PO DAILY [facility] Last Admin: 05/09/17 10:53 Dose: 5 mg Enoxaparin Sodium (Lovenox) 40 mg SC DAILY [facility] Last Admin: 05/06/17 09:59 Dose: 40 mg Folic Acid (Folic Acid) 1 mg PO DAILY [facility] Last Admin: 05/09/17 10:53 Dose: 1 mg Losartan Potassium (Cozaar) 25 mg PO DAILY [facility] Last Admin: 05/09/17 10:53 Dose: 25 mg Meclizine HCl (Antivert) 25 mg PO BID PRN PRN Reason: Dizziness Metoprolol Succinate (Toprol Xl) 25 mg PO DAILY [facility] Rosuvastatin Calcium (Crestor) 20 mg PO HS [facility] Last Admin: 05/08/17 21:24 Dose: 20 mg - Labs Labs: 05/09/17 07:54 05/09/17 07:54 PT 13.0 SECONDS (9.7-12.2) H 05/07/17 07:20 INR 1.1 05/07/17 07:20 APTT 32 SECONDS (21-34) 05/07/17 07:20 Attending/Attestation - Attestation I have personally seen and examined this patient.: Yes I have fully participated in the care of the patient.: Yes I have reviewed all pertinent clinical information, including history, physical exam and plan: Yes Notes (Text): 05/09/17 15:25 ppm tomorrow 5pm npo after bkfst
[2017-05-09] MEDS ORDERED: POLYETHYLENE GLYCOL 3350 17 GM/Dose PACKET PO ONE ×2 (11:00→13:02)
--- NOTE | 2017-05-10 02:17 | CP.PCM.PN ---
Subjective - Date & Time of Evaluation Date of Evaluation: 05/09/17 Time of Evaluation: 23:30 - Subjective Subjective: awaiting PPM plan for PCI/atherectomy of LAD as outpt next week no complaints Objective - Vital Signs/Intake and Output Vital Signs (last 24 hours): Temp Pulse Resp BP Pulse Ox 97.4 F L 65 20 104/62 95 05/09/17 23:20 05/09/17 23:20 05/09/17 23:20 05/09/17 23:20 05/09/17 23:20 Intake and Output: 05/09/17 05/10/17 18:59 06:59 Intake Total 480 Output Total 400 Balance 80 - Medications Medications: Current Medications Acetaminophen (Tylenol 325mg Tab) 650 mg PO Q6 PRN PRN Reason: Headache Amlodipine Besylate (Norvasc) 5 mg PO DAILY [facility] Last Admin: 05/09/17 10:53 Dose: 5 mg Enoxaparin Sodium (Lovenox) 40 mg SC DAILY [facility] Last Admin: 05/06/17 09:59 Dose: 40 mg Folic Acid (Folic Acid) 1 mg PO DAILY [facility] Last Admin: 05/09/17 10:53 Dose: 1 mg Losartan Potassium (Cozaar) 25 mg PO DAILY [facility] Last Admin: 05/09/17 10:53 Dose: 25 mg Meclizine HCl (Antivert) 25 mg PO BID PRN PRN Reason: Dizziness Metoprolol Succinate (Toprol Xl) 25 mg PO DAILY [facility] Rosuvastatin Calcium (Crestor) 20 mg PO HS [facility] Last Admin: 05/09/17 21:31 Dose: 20 mg - Labs Labs: 05/09/17 07:54 05/09/17 07:54 PT 13.0 SECONDS (9.7-12.2) H 05/07/17 07:20 INR 1.1 05/07/17 07:20 APTT 32 SECONDS (21-34) 05/07/17 07:20 - Constitutional Appears: Well - Head Exam Head Exam: ATRAUMATIC, NORMAL INSPECTION, NORMOCEPHALIC - Eye Exam Eye Exam: EOMI, Normal appearance, PERRL Pupil Exam: NORMAL ACCOMODATION, PERRL - ENT Exam ENT Exam: Mucous Membranes Moist, Normal Exam - Neck Exam Neck Exam: Full ROM, Normal Inspection. absent: Lymphadenopathy - Respiratory Exam Respiratory Exam: Clear to Ausculation Bilateral, NORMAL BREATHING PATTERN - Cardiovascular Exam Cardiovascular Exam: REGULAR RHYTHM, +S1, +S2. absent: Murmur - GI/Abdominal Exam GI & Abdominal Exam: Soft, Normal Bowel Sounds. absent: Tenderness - Rectal Exam Rectal Exam: NORMAL INSPECTION - Extremities Exam Extremities Exam: Full ROM, Normal Capillary Refill, Normal Inspection. absent : Joint Swelling, Pedal Edema - Back Exam Back Exam: NORMAL INSPECTION - Neurological Exam Neurological Exam: Alert, Awake, CN II-XII Intact, Normal Gait, Oriented x3 - Psychiatric Exam Psychiatric exam: Normal Affect, Normal Mood - Skin Skin Exam: Dry, Intact, Normal Color, Warm Assessment and Plan (1) AV block Assessment & Plan: plan for PPM Status: Acute (2) Bradycardia Status: Acute (3) CAD (coronary artery disease) Assessment & Plan: PCI of LAD next week keep pt on DAPT Status: Acute (4) Dizziness Status: Acute (5) HTN (hypertension) Status: Acute (6) S/P coronary angiogram Status: Acute
[2017-05-10 07:40] LABS: BASO % 0.5 % (0.0-2.0); EOS # 0.3 K/uL (0.0-0.7); EOS % 3.4 % (0.0-4.0); HEMATOCRIT 42.2 % (35.0-51.0); LYMPH # 2.7 K/uL (1.0-4.3); LYMPH % 33.9 % (20.0-40.0); MEAN CELL VOLUME 87.2 fL (80.0-94.0); MEAN CORPUSCULAR HEMOGLOBIN 29.7 pg (27.0-31.0); MEAN CORPUSCULAR HGB CONC 34.1 g/dL (33.0-37.0); MEAN PLATELET VOLUME 7.5 fL (7.2-11.7); MONO # 0.7 K/uL (0.0-0.8); MONO % 9.5 % (0.0-10.0); NRBC % 0.1 % (0.0-2.0); RED CELL DISTRIBUTION WIDTH 13.7 % (11.5-14.5); WHITE BLOOD COUNT 7.8 K/uL (4.8-10.8)
--- NOTE | 2017-05-10 08:04 | CP.PCM.PN ---
<TIFFANY LOCKHART - Last Filed: 05/10/17 10:30> Subjective - Date & Time of Evaluation Date of Evaluation: 05/10/17 Time of Evaluation: 08:01 - Subjective Subjective: Tiffany Lockhart, PGY1, Progress Note for Dr. Enriquez: Pt seen and examined at bedside. No acute events overnight. Pt denies cp, sob, n/v/d, f/c, abdominal pain. Pt scheduled for PPM today at [facility]. Keep pt NPO. Objective - Vital Signs/Intake and Output Vital Signs (last 24 hours): Temp Pulse Resp BP Pulse Ox 97.6 F 57 L 20 140/79 95 05/10/17 04:00 05/10/17 04:20 05/10/17 04:00 05/10/17 04:00 05/10/17 04:00 Intake and Output: 05/10/17 05/10/17 06:59 18:59 Intake Total 400 Balance 400 - Medications Medications: Current Medications Acetaminophen (Tylenol 325mg Tab) 650 mg PO Q6 PRN PRN Reason: Headache Amlodipine Besylate (Norvasc) 5 mg PO DAILY [facility] Last Admin: 05/09/17 10:53 Dose: 5 mg Enoxaparin Sodium (Lovenox) 40 mg SC DAILY [facility] Last Admin: 05/06/17 09:59 Dose: 40 mg Folic Acid (Folic Acid) 1 mg PO DAILY [facility] Last Admin: 05/09/17 10:53 Dose: 1 mg Losartan Potassium (Cozaar) 25 mg PO DAILY [facility] Last Admin: 05/09/17 10:53 Dose: 25 mg Meclizine HCl (Antivert) 25 mg PO BID PRN PRN Reason: Dizziness Metoprolol Succinate (Toprol Xl) 25 mg PO DAILY [facility] Polyethylene Glycol (Miralax) 17 gm PO ONCE ONE Stop: 05/10/17 10:01 Rosuvastatin Calcium (Crestor) 20 mg PO HS [facility] Last Admin: 05/09/17 21:31 Dose: 20 mg - Labs Labs: 05/10/17 07:26 05/09/17 07:54 PT 13.0 SECONDS (9.7-12.2) H 05/07/17 07:20 INR 1.1 05/07/17 07:20 APTT 32 SECONDS (21-34) 05/07/17 07:20 - Constitutional Appears: No Acute Distress - Head Exam Head Exam: ATRAUMATIC, NORMOCEPHALIC - Eye Exam Eye Exam: PERRL - ENT Exam ENT Exam: Mucous Membranes Moist - Respiratory Exam Respiratory Exam: Clear to Ausculation Bilateral - Cardiovascular Exam Cardiovascular Exam: Bradycardia - GI/Abdominal Exam GI & Abdominal Exam: Soft, Normal Bowel Sounds. absent: Tenderness - Extremities Exam Extremities Exam: absent: Calf Tenderness, Pedal Edema - Neurological Exam Neurological Exam: Alert, Awake, Oriented x3 - Psychiatric Exam Psychiatric exam: Normal Mood - Skin Skin Exam: Dry, Normal Color, Warm Assessment and Plan - Assessment and Plan (Free Text) Assessment: 81M with PMH HTN, HLD, admitted to the hospital for bradycardia and 2nd degree AV block. Cardiac cath (with Dr. Gilliam) positive for blockage, could not undergo stent placement at [facility] due to extensive calcifications, will have EPS and possible pacemaker placement today, at [facility]. Pt will return to [facility] after the procedure. Plan: Dizziness 2/2 likely 2nd degree AV block: - Holter monitor at home showed multiple pauses of 3.5 secs and 2nd degree AV block type 1 and type 2. - EKG 05/03 showed HR 86, sinus rhythm with 1st degree AV block and RBBB - CXR 05/03 showed cardiomegaly with calcification of aortic knob - Echo report from 04/30/17: LVEF 65%, no valvular abnormalities, No LVH. - Exercise Stress test 04/30/17: Normal, no ekg changes, fair work capacity. - C/w Norvasc, Crestor, losartan. Will Hold Toprol, in view of bradycardia. - Cardiac cath 05/08 (Dr gilliam) + for blockage, f/u results. Could not undergo angioplasty at [facility] due to extensive calcification. Will f/u with Dr. Gilliam as outpatient at [facility]. - EPS and possible PPM placement with Dr. Enriquez today at [facility]. Will return to [facility] after procedure. Discussed with attending, Dr. Enriquez. Tiffany Lockhart, PGY1 <Tiana Enriquez - Last Filed: 05/14/17 15:24> Objective - Vital Signs/Intake and Output Vital Signs (last 24 hours): Temp Pulse Resp BP Pulse Ox 97.6 F 71 18 131/82 94 L 05/11/17 07:30 05/11/17 07:30 05/11/17 07:30 05/11/17 07:30 05/11/17 07:30 - Labs Labs: 05/11/17 10:50 05/11/17 10:50 PT 13.0 SECONDS (9.7-12.2) H 05/07/17 07:20 INR 1.1 05/07/17 07:20 APTT 32 SECONDS (21-34) 05/07/17 07:20 Assessment and Plan (1) AV block Status: Acute (2) Bradycardia Status: Acute (3) Dizziness Status: Acute Attending/Attestation - Attestation I have personally seen and examined this patient.: Yes I have fully participated in the care of the patient.: Yes I have reviewed all pertinent clinical information, including history, physical exam and plan: Yes Notes (Text): 05/14/17 15:24 tx ppm/eps to eval heart block
[2017-05-10 08:34] LABS: ALB/GLOB RATIO 1.2 (1.0-2.1); ALKALINE PHOSPHATASE 61 U/L (38-126); ALT/SGPT 38 U/L (21-72); AST/SGOT 32 U/L (17-59); BILIRUBIN,TOTAL 0.9 mg/dL (0.2-1.3); BLOOD UREA NITROGEN 14 mg/dL (9-20); CARBON DIOXIDE 27 mmol/L (22-30); CHLORIDE 102 mmol/L (98-107); GFR AFRICAN-AMERICAN > 60; GLUCOSE,RANDOM 104 mg/dL (75-110); MAGNESIUM 2.2 mg/dL (1.6-2.3); PHOSPHOROUS 2.9 mg/dL (2.5-4.5); POTASSIUM 4.2 mmol/L (3.6-5.2); SODIUM 141 mmol/L (132-148); TOTAL PROTEIN 6.8 g/dL (6.3-8.3)
--- NOTE | 2017-05-10 09:13 | CP.PCM.PN ---
<Carolyn Wagoner - Last Filed: 05/10/17 09:11> Subjective - Date & Time of Evaluation Date of Evaluation: 05/10/17 Time of Evaluation: 07:00 - Subjective Subjective: Medicine Note for Dr. Trujillo Patient was seen and examined at bedside. No acute complaints. Denied fever, chills, headache, chest pain, abdominal pain, n/v/d/c, or urinary symptoms. Patient held NPO for EPS and possible Pacemaker today @ [place]. PATIENT WILL RETURN TO [facility] Objective - Vital Signs/Intake and Output Vital Signs (last 24 hours): Temp Pulse Resp BP Pulse Ox 98.1 F 60 20 123/77 96 05/10/17 09:04 05/10/17 09:04 05/10/17 09:04 05/10/17 09:04 05/10/17 09:04 Intake and Output: 05/10/17 05/10/17 06:59 18:59 Intake Total 520 Balance 520 - Medications Medications: Current Medications Acetaminophen (Tylenol 325mg Tab) 650 mg PO Q6 PRN PRN Reason: Headache Amlodipine Besylate (Norvasc) 5 mg PO DAILY [facility] Last Admin: 05/09/17 10:53 Dose: 5 mg Enoxaparin Sodium (Lovenox) 40 mg SC DAILY [facility] Last Admin: 05/06/17 09:59 Dose: 40 mg Folic Acid (Folic Acid) 1 mg PO DAILY [facility] Last Admin: 05/09/17 10:53 Dose: 1 mg Losartan Potassium (Cozaar) 25 mg PO DAILY [facility] Last Admin: 05/09/17 10:53 Dose: 25 mg Meclizine HCl (Antivert) 25 mg PO BID PRN PRN Reason: Dizziness Metoprolol Succinate (Toprol Xl) 25 mg PO DAILY [facility] Polyethylene Glycol (Miralax) 17 gm PO ONCE ONE Stop: 05/10/17 10:01 Rosuvastatin Calcium (Crestor) 20 mg PO HS [facility] Last Admin: 05/09/17 21:31 Dose: 20 mg - Labs Labs: 05/10/17 07:26 05/10/17 07:26 PT 13.0 SECONDS (9.7-12.2) H 05/07/17 07:20 INR 1.1 05/07/17 07:20 APTT 32 SECONDS (21-34) 05/07/17 07:20 - Constitutional Appears: No Acute Distress - Head Exam Head Exam: NORMAL INSPECTION, NORMOCEPHALIC - Eye Exam Eye Exam: EOMI, Normal appearance, PERRL - ENT Exam ENT Exam: Mucous Membranes Moist, Normal Exam - Neck Exam Neck Exam: Normal Inspection - Respiratory Exam Respiratory Exam: Clear to Ausculation Bilateral, NORMAL BREATHING PATTERN. absent: Wheezes - Cardiovascular Exam Cardiovascular Exam: REGULAR RHYTHM, RRR - GI/Abdominal Exam GI & Abdominal Exam: Soft, Normal Bowel Sounds. absent: Distended, Tenderness - Extremities Exam Extremities Exam: Normal Inspection. absent: Pedal Edema, Tenderness - Neurological Exam Neurological Exam: Alert, Awake, Oriented x3 - Skin Skin Exam: Dry, Intact, Normal Color, Warm Assessment and Plan - Assessment and Plan (Free Text) Plan: AV block Assessment and Plan: AV block findings consistent with second degree block. EKG showed sinus rhythm with 1st degree AV block and RBBB CXR showed cardiomegaly with calcification of aortic knob Echo report from 04/30/17: LVEF 65%, LV normal size with normal wall thickness. Refer to complete report Stress test report from 04/30/17: Normal with fair work capacity. Refer to complete report. Patient on Toprol XL (HELD), Norvasc and Crestor. Will begin Losartan [address] of [facility], will monitor BP Dr. Kaplan's (Cardio) recommendations - Cardiac Cath on Sunday. Patient was transported to [place] to have PCI on Sunday. As per Cardiology, due to extensive calcification, stent was unable to be placed. Patient will follow up with Dr. Kaplan as outpatient at [facility]. Patient held NPO for EPS and possible Pacemaker today @ [place]. PATIENT WILL RETURN TO [facility] Status: Acute Dizziness Assessment and Plan: Improving Likely secondary to AV block Meclizine 25 mg BID PRN Status: Acute Prophylactic measure Assessment and Plan: SCDS Lovenox 40mg SC daily - HELD due to pacemaker placement GI prophylaxis not indicated at this time. NPO after midnight Status: Acute DW Ciaran Tabor DO, PGY-1 <Mata Trujillo - Last Filed: 05/10/17 12:18> Objective - Vital Signs/Intake and Output Vital Signs (last 24 hours): Temp Pulse Resp BP Pulse Ox 98.1 F 60 20 123/77 96 05/10/17 09:04 05/10/17 09:04 05/10/17 09:04 05/10/17 09:04 05/10/17 09:04 Intake and Output: 05/10/17 05/10/17 06:59 18:59 Intake Total 520 0 Balance 520 0 - Labs Labs: 05/10/17 07:26 05/10/17 07:26 PT 13.0 SECONDS (9.7-12.2) H 05/07/17 07:20 INR 1.1 05/07/17 07:20 APTT 32 SECONDS (21-34) 05/07/17 07:20 Attending/Attestation - Attestation I have personally seen and examined this patient.: Yes I have fully participated in the care of the patient.: Yes I have reviewed all pertinent clinical information, including history, physical exam and plan: Yes Notes (Text): 05/10/17 12:17 Medical attending: Patient was seen and examined by me, agrees the above note by program medical director. At some point he's can be moved to [facility] and from my understanding probably will come back to [facility] later tonight. Per review of his telemetry, we haven't seen any strips or recordings showing definitive second degree heart block. Most of what we see her very long NH segments (first-degree block) on the telemetry recordings and strips. The patient said that he felt well, he denied having any chest pain, did not have any difficulty breathing. Thank you very much, Mata Trujillo
[2017-05-10] MEDS ORDERED: POLYETHYLENE GLYCOL 3350 17 GM/Dose PACKET PO ONE (10:00)
[2017-05-10] MEDS ORDERED: Magnesium Hydroxide Susp 30 ml UD PO ONE (23:25)
[2017-05-11 00:53] VITALS: RESP 18
[2017-05-11 04:43] VITALS: TEMP 97.6
--- NOTE | 2017-05-11 06:32 | CP.PCM.PN ---
Subjective - Date & Time of Evaluation Date of Evaluation: 05/10/17 Time of Evaluation: 19:00 - Subjective Subjective: awaiting for PPM PCI of LAD next week no complaints Objective - Vital Signs/Intake and Output Vital Signs (last 24 hours): Temp Pulse Resp BP Pulse Ox 97.6 F 67 18 134/81 95 05/11/17 04:42 05/11/17 04:42 05/11/17 04:42 05/11/17 04:42 05/11/17 04:42 Intake and Output: 05/10/17 05/11/17 18:59 06:59 Intake Total 0 120 Balance 0 120 - Medications Medications: Current Medications Acetaminophen (Tylenol 325mg Tab) 650 mg PO Q6 PRN PRN Reason: Headache Amlodipine Besylate (Norvasc) 5 mg PO DAILY [facility] Last Admin: 05/10/17 10:37 Dose: Not Given Docusate Sodium (Colace) 100 mg PO DAILY [facility] Enoxaparin Sodium (Lovenox) 40 mg SC DAILY [facility] Last Admin: 05/06/17 09:59 Dose: 40 mg Folic Acid (Folic Acid) 1 mg PO DAILY [facility] Last Admin: 05/10/17 10:37 Dose: Not Given Losartan Potassium (Cozaar) 25 mg PO DAILY [facility] Last Admin: 05/10/17 10:37 Dose: Not Given Meclizine HCl (Antivert) 25 mg PO BID PRN PRN Reason: Dizziness Metoprolol Succinate (Toprol Xl) 25 mg PO DAILY [facility] Rosuvastatin Calcium (Crestor) 20 mg PO HS [facility] Last Admin: 05/10/17 21:16 Dose: 20 mg - Labs Labs: 05/10/17 07:26 05/10/17 07:26 PT 13.0 SECONDS (9.7-12.2) H 05/07/17 07:20 INR 1.1 05/07/17 07:20 APTT 32 SECONDS (21-34) 05/07/17 07:20 - Constitutional Appears: Well - Head Exam Head Exam: ATRAUMATIC, NORMAL INSPECTION, NORMOCEPHALIC - Eye Exam Eye Exam: EOMI, Normal appearance, PERRL Pupil Exam: NORMAL ACCOMODATION, PERRL - ENT Exam ENT Exam: Mucous Membranes Moist, Normal Exam - Neck Exam Neck Exam: Full ROM, Normal Inspection. absent: Lymphadenopathy - Respiratory Exam Respiratory Exam: Clear to Ausculation Bilateral, NORMAL BREATHING PATTERN - Cardiovascular Exam Cardiovascular Exam: REGULAR RHYTHM, +S1, +S2. absent: Murmur - GI/Abdominal Exam GI & Abdominal Exam: Soft, Normal Bowel Sounds. absent: Tenderness - Rectal Exam Rectal Exam: NORMAL INSPECTION - Extremities Exam Extremities Exam: Full ROM, Normal Capillary Refill, Normal Inspection. absent : Joint Swelling, Pedal Edema - Back Exam Back Exam: NORMAL INSPECTION - Neurological Exam Neurological Exam: Alert, Awake, CN II-XII Intact, Normal Gait, Oriented x3 - Psychiatric Exam Psychiatric exam: Normal Affect, Normal Mood - Skin Skin Exam: Dry, Intact, Normal Color, Warm Assessment and Plan (1) AV block Status: Acute (2) Bradycardia Status: Acute (3) CAD (coronary artery disease) Status: Acute (4) Dizziness Status: Acute (5) HTN (hypertension) Status: Acute (6) S/P coronary angiogram Status: Acute
--- NOTE | 2017-05-11 06:35 | CP.PCM.PN ---
Subjective - Date & Time of Evaluation Date of Evaluation: 05/11/17 Time of Evaluation: 06:35 - Subjective Subjective: s/p PPM plan for PCI of LAD next week cont GDMT for CAD Objective - Vital Signs/Intake and Output Vital Signs (last 24 hours): Temp Pulse Resp BP Pulse Ox 97.6 F 67 18 134/81 95 05/11/17 04:42 05/11/17 04:42 05/11/17 04:42 05/11/17 04:42 05/11/17 04:42 Intake and Output: 05/10/17 05/11/17 18:59 06:59 Intake Total 0 120 Balance 0 120 - Medications Medications: Current Medications Acetaminophen (Tylenol 325mg Tab) 650 mg PO Q6 PRN PRN Reason: Headache Amlodipine Besylate (Norvasc) 5 mg PO DAILY [facility] Last Admin: 05/10/17 10:37 Dose: Not Given Docusate Sodium (Colace) 100 mg PO DAILY [facility] Enoxaparin Sodium (Lovenox) 40 mg SC DAILY [facility] Last Admin: 05/06/17 09:59 Dose: 40 mg Folic Acid (Folic Acid) 1 mg PO DAILY [facility] Last Admin: 05/10/17 10:37 Dose: Not Given Losartan Potassium (Cozaar) 25 mg PO DAILY [facility] Last Admin: 05/10/17 10:37 Dose: Not Given Meclizine HCl (Antivert) 25 mg PO BID PRN PRN Reason: Dizziness Metoprolol Succinate (Toprol Xl) 25 mg PO DAILY [facility] Rosuvastatin Calcium (Crestor) 20 mg PO [facility] Last Admin: 05/10/17 21:16 Dose: 20 mg - Labs Labs: 05/10/17 07:26 05/10/17 07:26 PT 13.0 SECONDS (9.7-12.2) H 05/07/17 07:20 INR 1.1 05/07/17 07:20 APTT 32 SECONDS (21-34) 05/07/17 07:20 - Constitutional Appears: Well - Head Exam Head Exam: ATRAUMATIC, NORMAL INSPECTION, NORMOCEPHALIC - Eye Exam Eye Exam: EOMI, Normal appearance, PERRL Pupil Exam: NORMAL ACCOMODATION, PERRL - ENT Exam ENT Exam: Mucous Membranes Moist, Normal Exam - Neck Exam Neck Exam: Full ROM, Normal Inspection. absent: Lymphadenopathy - Respiratory Exam Respiratory Exam: Clear to Ausculation Bilateral, NORMAL BREATHING PATTERN - Cardiovascular Exam Cardiovascular Exam: REGULAR RHYTHM, +S1, +S2. absent: Murmur - GI/Abdominal Exam GI & Abdominal Exam: Soft, Normal Bowel Sounds. absent: Tenderness - Rectal Exam Rectal Exam: NORMAL INSPECTION - Extremities Exam Extremities Exam: Full ROM, Normal Capillary Refill, Normal Inspection. absent : Joint Swelling, Pedal Edema - Back Exam Back Exam: NORMAL INSPECTION - Neurological Exam Neurological Exam: Alert, Awake, CN II-XII Intact, Normal Gait, Oriented x3 - Psychiatric Exam Psychiatric exam: Normal Affect, Normal Mood - Skin Skin Exam: Dry, Intact, Normal Color, Warm Assessment and Plan (1) AV block Status: Acute (2) Bradycardia Status: Acute (3) CAD (coronary artery disease) Status: Acute (4) Dizziness Status: Acute (5) HTN (hypertension) Status: Acute (6) S/P coronary angiogram Status: Acute
[2017-05-11 08:06] VITALS: BP 131/82; PULSE 71; O2SAT 94
--- NOTE | 2017-05-11 09:27 | CP.PCM.PN ---
<TIFFANY LOCKHART - Last Filed: 05/11/17 09:23> Subjective - Date & Time of Evaluation Date of Evaluation: 05/11/17 Time of Evaluation: 09:23 - Subjective Subjective: Tiffany Lockhart, PGY1, Progress Note for Dr. Enriquez: Pt seen and examined at bedside. No acute events overnight. Pt denies cp, sob, n/v/d, f/c, abdominal pain. POD1, pacemaker placement, denies pain, swelling, profuse bleeding at the site. Objective - Vital Signs/Intake and Output Vital Signs (last 24 hours): Temp Pulse Resp BP Pulse Ox 97.6 F 71 18 131/82 94 L 05/11/17 07:30 05/11/17 07:30 05/11/17 07:30 05/11/17 07:30 05/11/17 07:30 Intake and Output: 05/11/17 05/11/17 06:59 18:59 Intake Total 120 Balance 120 - Medications Medications: Current Medications Acetaminophen (Tylenol 325mg Tab) 650 mg PO Q6 PRN PRN Reason: Headache Amlodipine Besylate (Norvasc) 5 mg PO DAILY [facility] Last Admin: 05/10/17 10:37 Dose: Not Given Aspirin (Aspirin Chewable) 81 mg PO DAILY [facility] Clopidogrel Bisulfate (Plavix) 75 mg PO DAILY [facility] Docusate Sodium (Colace) 100 mg PO DAILY [facility] Losartan Potassium (Cozaar) 25 mg PO DAILY [facility] Last Admin: 05/10/17 10:37 Dose: Not Given Meclizine HCl (Antivert) 25 mg PO BID PRN PRN Reason: Dizziness Rosuvastatin Calcium (Crestor) 20 mg PO [facility] Last Admin: 05/10/17 21:16 Dose: 20 mg - Labs Labs: 05/10/17 07:26 05/10/17 07:26 PT 13.0 SECONDS (9.7-12.2) H 05/07/17 07:20 INR 1.1 05/07/17 07:20 APTT 32 SECONDS (21-34) 05/07/17 07:20 - Constitutional Appears: No Acute Distress - Head Exam Head Exam: ATRAUMATIC, NORMOCEPHALIC - Eye Exam Eye Exam: PERRL - ENT Exam ENT Exam: Mucous Membranes Moist - Respiratory Exam Respiratory Exam: Clear to Ausculation Bilateral - Cardiovascular Exam Cardiovascular Exam: REGULAR RHYTHM, +S1, +S2. absent: Murmur - GI/Abdominal Exam GI & Abdominal Exam: Soft, Normal Bowel Sounds. absent: Tenderness - Extremities Exam Extremities Exam: absent: Calf Tenderness, Pedal Edema - Neurological Exam Neurological Exam: Alert, Awake, Oriented x3 - Psychiatric Exam Psychiatric exam: Normal Affect, Normal Mood - Skin Skin Exam: Dry, Intact, Warm Assessment and Plan - Assessment and Plan (Free Text) Assessment: 81M with PMH HTN, HLD, admitted to the hospital for bradycardia and 2nd degree AV block. Cardiac cath (with Dr. Gilliam) positive for blockage, could not undergo stent placement at [facility] due to extensive calcifications, pacemaker placed yesterday, doing well, cleared from cardiology for discharge. Plan: Dizziness 2/2 likely 2nd degree AV block: - Holter monitor at home showed multiple pauses of 3.5 secs and 2nd degree AV block type 1 and type 2. - EKG 05/03 showed HR 86, sinus rhythm with 1st degree AV block and RBBB - CXR 05/03 showed cardiomegaly with calcification of aortic knob - Echo report from 04/30/17: LVEF 65%, no valvular abnormalities, No LVH. - Exercise Stress test 04/30/17: Normal, no ekg changes, fair work capacity. - C/w Norvasc, Crestor, losartan. - Cardiac cath 05/08 (Dr gilliam) + for blockage, f/u results. Could not undergo angioplasty at [facility] due to extensive calcification. Will f/u with Dr. Gilliam as outpatient at [facility]. - Pacemaker placed yesterday, pacemaker site c/d/i, cleared from cardiology for discharge. Discussed with attending, Dr. Enriquez. Tiffany Lockhart, PGY1 <Tiana Enriquez - Last Filed: 05/14/17 15:25> Objective - Vital Signs/Intake and Output Vital Signs (last 24 hours): Temp Pulse Resp BP Pulse Ox 97.6 F 71 18 131/82 94 L 05/11/17 07:30 05/11/17 07:30 05/11/17 07:30 05/11/17 07:30 05/11/17 07:30 - Labs Labs: 05/11/17 10:50 05/11/17 10:50 PT 13.0 SECONDS (9.7-12.2) H 05/07/17 07:20 INR 1.1 05/07/17 07:20 APTT 32 SECONDS (21-34) 05/07/17 07:20 Assessment and Plan (1) AV block Status: Acute (2) Bradycardia Status: Acute (3) Dizziness Status: Acute Attending/Attestation - Attestation I have personally seen and examined this patient.: Yes I have fully participated in the care of the patient.: Yes I have reviewed all pertinent clinical information, including history, physical exam and plan: Yes Notes (Text): 05/14/17 15:25 ppm stable prophylaxis against heart block
--- NOTE | 2017-05-11 09:31 | CP.PCM.DIS ---
<Carolyn Wagoner - Last Filed: 05/11/17 09:41> Provider - Provider Date of Admission: 05/03/17 18:10 Attending physician: Mata Trujillo DO Time Spent in preparation of Discharge (in minutes): 55 Hospital Course - Lab Results Lab Results: Micro Results 05/06/17 Unknown Nose MRSA Culture - Final MRSA NOT DETECTED 05/04/17 05:08 Nose MRSA Culture (Admit) - Final MRSA NOT DETECTED Most Recent Lab Values WBC 7.8 K/uL (4.8-10.8) 05/10/17 07:26 RBC 4.84 Mil/uL (4.40-5.90) 05/10/17 07:26 Hgb 14.4 g/dL (12.0-18.0) 05/10/17 07:26 Hct 42.2 % (35.0-51.0) 05/10/17 07:26 MCV 87.2 fL (80.0-94.0) 05/10/17 07:26 MCH 29.7 pg (27.0-31.0) 05/10/17 07:26 MCHC 34.1 g/dL (33.0-37.0) 05/10/17 07:26 RDW 13.7 % (11.5-14.5) 05/10/17 07:26 Plt Count 232 K/uL (130-400) 05/10/17 07:26 MPV 7.5 fL (7.2-11.7) 05/10/17 07:26 Neut % (Auto) 52.7 % (50.0-75.0) 05/10/17 07:26 Lymph % (Auto) 33.9 % (20.0-40.0) 05/10/17 07:26 Meriwether % (Auto) 9.5 % (0.0-10.0) 05/10/17 07:26 Eos % (Auto) 3.4 % (0.0-4.0) 05/10/17 07:26 Baso % (Auto) 0.5 % (0.0-2.0) 05/10/17 07:26 Neut # 4.1 K/uL (1.8-7.0) 05/10/17 07:26 Lymph # 2.7 K/uL (1.0-4.3) 05/10/17 07:26 Meriwether # 0.7 K/uL (0.0-0.8) 05/10/17 07:26 Eos # 0.3 K/uL (0.0-0.7) 05/10/17 07:26 Baso # 0.0 K/uL (0.0-0.2) 05/10/17 07:26 PT 13.0 SECONDS (9.7-12.2) H 05/07/17 07:20 INR 1.1 05/07/17 07:20 APTT 32 SECONDS (21-34) 05/07/17 07:20 Sodium 141 mmol/L (132-148) 05/10/17 07:26 Potassium 4.2 mmol/L (3.6-5.2) 05/10/17 07:26 Chloride 102 mmol/L (98-107) 05/10/17 07:26 Carbon Dioxide 27 mmol/L (22-30) 05/10/17 07:26 Anion Gap 16 (10-20) 05/10/17 07:26 BUN 14 mg/dL (9-20) 05/10/17 07:26 Creatinine 1.0 MG/DL (0.8-1.5) 05/10/17 07:26 Est GFR ( Amer) > 60 05/10/17 07:26 Est GFR (Non-Af Amer) > 60 05/10/17 07:26 Random Glucose 104 mg/dL (75-110) 05/10/17 07:26 Hemoglobin A1c 6.0 % (4.2-6.5) 05/04/17 04:38 Calcium 9.0 mg/dl (8.6-10.4) 05/10/17 07:26 Phosphorus 2.9 mg/dL (2.5-4.5) 05/10/17 07:26 Magnesium 2.2 mg/dL (1.6-2.3) 05/10/17 07:26 Total Bilirubin 0.9 mg/dL (0.2-1.3) 05/10/17 07:26 AST 32 U/L (17-59) 05/10/17 07:26 ALT 38 U/L (21-72) 05/10/17 07:26 Alkaline Phosphatase 61 U/L (38-126) 05/10/17 07:26 Total Protein 6.8 g/dL (6.3-8.3) 05/10/17 07:26 Albumin 3.8 g/dL (3.5-5.0) 05/10/17 07:26 Globulin 3.1 gm/dL (2.2-3.9) 05/10/17 07:26 Albumin/Globulin Ratio 1.2 (1.0-2.1) 05/10/17 07:26 Triglycerides 161 mg/dL (0-149) H 05/04/17 04:38 Cholesterol 126 mg/dL (0-199) 05/04/17 04:38 LDL Cholesterol Direct 68 mg/dL (0-129) 05/04/17 04:38 HDL Cholesterol 36 mg/dL (30-70) 05/04/17 04:38 Thyroxine (T4) 6.42 ug/dL (5.5-11.0) 05/04/17 04:38 TSH 3rd Generation 2.17 mIU/L (0.46-4.68) 05/04/17 04:38 Blood Type O NEGATIVE 05/03/17 18:08 Antibody Screen Negative 05/03/17 18:08 - Hospital Course Hospital Course: Upon Admission: Patient was seen and examined at approximately 20:20PM on 05/03/17. Patient is DNR/DNI and deems brother Shad Ochoa as Power of personal injury attorney CC: dizziness HPI: 81 year old male with PMHx significant for Heart block and arthritis presents in need of pacemaker. Patient began experiencing dizziness approximately two weeks ago. He went to see his PMD Dr. Pineda who recommended a holter monitor. The findings of the monitor were significant for second degree AV block. Patient was thus referred to see [facility] Dr. Kaplan for pacemaker placement. Today, patient states that he does not have any complaints. He specifically denies subjective fevers or chills, chest pain, palpitations, weakness, headaches, nausea, vomiting, changes in bowels, recent weight changes at this time. PMHx- as noted above PSHx- prostate procedure 25 years ago. Patient states that they " took a scrape " Fam Hx- Dad at the age of 96 of an RI; Mother diagnosed with Alzhiemer's at 89. at the age of 93 Social Hx- Smoked 1 ppd from the age of 16 to the age of 39; drinks a glass of red wine frequently; denies illicit drug use Meds- Folic acid 1 mg daily, toprol XL 25 mg daily, meclizine 25 mg PO BID, Norvasc 5 mg daily, Edarbi ( azilsartan medoxomil) 40 mg daily, Crestor 20 mg at night Allergies- NKDA PMD: Dr. Yury Pineda Throughout Hospital Course: Patient was admitted for 2nd degree AV Block. He was monitored on telemetry and evaluated by an lock and dam equipment repairer Dr. Kaplan and EP [facility], Dr. Rios. Patient underwent a cardiac catherization, which required placement of a stent. He is to be transferred to [place] for insertion of the stent. The stent was not able to be placed. He will follow up with Dr. Kaplan in 1 week at [place] for stent placement. Patient had a pacemaker inserted by Dr. Enriquez. He will follow up with him as outpatient. Patient is to continue current home medications. This is a short summary of the patient's hospital course, please evaluate EMR for full record. Discharge Exam - Head Exam Head Exam: ATRAUMATIC, NORMOCEPHALIC - Eye Exam Eye Exam: EOMI, Normal appearance, PERRL Pupil Exam: NORMAL ACCOMODATION - ENT Exam ENT Exam: Mucous Membranes Moist - Respiratory Exam Respiratory Exam: NORMAL BREATHING PATTERN - Cardiovascular Exam Cardiovascular Exam: REGULAR RHYTHM - GI/Abdominal Exam GI & Abdominal Exam: Normal Bowel Sounds, Soft - Extremities Exam Extremities exam: normal inspection, pedal pulses present - Neurological Exam Neurological exam: Alert, Oriented x3 - Psychiatric Exam Psychiatric exam: Normal Affect, Normal Mood - Skin Skin Exam: Dry, Intact, Normal Color, Warm Discharge Plan - Discharge Medications Prescriptions: Aspirin [Aspirin Chewable] 81 mg PO DAILY #30 Clopidogrel [Plavix] 75 mg PO DAILY #30 tab Docusate [Colace] 100 mg PO BID #60 cap Metoprolol Tartrate 25 mg PO DAILY #30 tablet - Follow Up Plan Condition: STABLE Disposition: HOME/ ROUTINE Instructions: Metoprolol (By mouth), Aspirin (By mouth), Laxative, Stool Softeners (By mouth), Clopidogrel (By mouth), Pacemaker (GEN), Heart Healthy Diet (DC), Bradycardia (DC), Heart Catheterization (DC) Additional Instructions: Patient is to continue the following medications: ASA 81mg by mouth daily, Plavix 75mg by mouth daily, Crestor 20mg by mouth daily, Cozaar 25mg by mouth daily, metoprolol 25mg by mouth daily and colace 100mg PO twice a day. Patient is to follow up with Dr. Kaplan in [place] next 05/17 @ 7am for stent placement. Please follow up with Dr. Enriquez within 1 week to have the pacemaker interrogated (checked on). Please see your PMD for routine care within 1 week. Please return to the ED if your symptoms return. Referrals: Rudy Kaplan MD [Staff Provider] - Tiana Enriquez MD [Staff Provider] - <Mata Trujillo - Last Filed: 05/11/17 17:03> Provider - Provider Date of Admission: 05/03/17 18:10 Attending physician: Mata Trujillo DO Hospital Course - Lab Results Lab Results: Micro Results 05/06/17 Unknown Nose MRSA Culture - Final MRSA NOT DETECTED 05/04/17 05:08 Nose MRSA Culture (Admit) - Final MRSA NOT DETECTED Most Recent Lab Values WBC 7.1 K/uL (4.8-10.8) 05/11/17 10:50 RBC 4.81 Mil/uL (4.40-5.90) 05/11/17 10:50 Hgb 14.3 g/dL (12.0-18.0) 05/11/17 10:50 Hct 41.8 % (35.0-51.0) 05/11/17 10:50 MCV 86.9 fL (80.0-94.0) 05/11/17 10:50 MCH 29.7 pg (27.0-31.0) 05/11/17 10:50 MCHC 34.2 g/dL (33.0-37.0) 05/11/17 10:50 RDW 13.8 % (11.5-14.5) 05/11/17 10:50 Plt Count 217 K/uL (130-400) 05/11/17 10:50 MPV 7.6 fL (7.2-11.7) 05/11/17 10:50 Neut % (Auto) 52.7 % (50.0-75.0) 05/10/17 07:26 Lymph % (Auto) 33.9 % (20.0-40.0) 05/10/17 07:26 Meriwether % (Auto) 9.5 % (0.0-10.0) 05/10/17 07: Eos % (Auto) 3.4 % (0.0-4.0) 05/10/17 07: Baso % (Auto) 0.5 % (0.0-2.0) 05/10/17 07: Neut # 4.1 K/uL (1.8-7.0) 05/10/17 07: Lymph # 2.7 K/uL (1.0-4.3) 05/10/17 07: Meriwether # 0.7 K/uL (0.0-0.8) 05/10/17 07: Eos # 0.3 K/uL (0.0-0.7) 05/10/17: Baso # 0.0 K/uL (0.0-0.2) 05/10/17 07:26 PT 13.0 SECONDS (9.7-12.2) H 05/07/17 07:20 INR 1.1 05/07/17 07:20 APTT 32 SECONDS (21-34) 05/07/17 07:20 Sodium 137 mmol/L (132-148) 05/11/17 10:50 Potassium 3.8 mmol/L (3.6-5.2) 05/11/17 10:50 Chloride 100 mmol/L (98-107) 05/11/17 10:50 Carbon Dioxide 26 mmol/L (22-30) 05/11/17 10:50 Anion Gap 15 (10-20) 05/11/17 10:50 BUN 15 mg/dL (9-20) 05/11/17 10:50 Creatinine 1.0 MG/DL (0.8-1.5) 05/11/17 10:50 Est GFR ( Amer) > 60 05/11/17 10:50 Est GFR (Non-Af Amer) > 60 05/11/17 10:50 Random Glucose 142 mg/dL (75-110) H 05/11/17 10:50 Hemoglobin A1c 6.0 % (4.2-6.5) 05/04/17 04:38 Calcium 8.9 mg/dl (8.6-10.4) 05/11/17 10:50 Phosphorus 2.9 mg/dL (2.5-4.5) 05/10/17 07:26 Magnesium 2.2 mg/dL (1.6-2.3) 05/10/17 07:26 Total Bilirubin 0.9 mg/dL (0.2-1.3) 05/11/17 10:50 AST 29 U/L (17-59) 05/11/17 10:50 ALT 39 U/L (21-72) 05/11/17 10:50 Alkaline Phosphatase 60 U/L (38-126) 05/11/17 10:50 Total Protein 6.8 g/dL (6.3-8.3) 05/11/17 10:50 Albumin 3.8 g/dL (3.5-5.0) 05/11/17 10:50 Globulin 3.1 gm/dL (2.2-3.9) 05/11/17 10:50 Albumin/Globulin Ratio 1.2 (1.0-2.1) 05/11/17 10:50 Triglycerides 161 mg/dL (0-149) H 05/04/17 04:38 Cholesterol 126 mg/dL (0-199) 05/04/17 04:38 LDL Cholesterol Direct 68 mg/dL (0-129) 05/04/17 04:38 HDL Cholesterol 36 mg/dL (30-70) 05/04/17 04:38 Thyroxine (T4) 6.42 ug/dL (5.5-11.0) 05/04/17 04:38 TSH 3rd Generation 2.17 mIU/L (0.46-4.68) 05/04/17 04:38 Blood Type O NEGATIVE 05/03/17 18:08 Antibody Screen Negative 05/03/17 18:08 Attending/Attestation - Attestation I have personally seen and examined this patient.: Yes I have fully participated in the care of the patient.: Yes I have reviewed all pertinent clinical information, including history, physical exam and plan: Yes Notes (Text): Medical Attending: Patient was seen and examined by me. Agree with the above note by the resident. The patient was not in any acute distress when we saw him. He denied chest pain and denied difficulty breathing. The patient felt ready to be discharged, he needs to be on ASA, Plavix as per cardiology. He also understands he needs to follow up with cardiology at [facility] for further cardiac catherization as well. thank you Mata Trujillo
[2017-05-11 11:01] LABS: HEMATOCRIT 41.8 % (35.0-51.0); MEAN CELL VOLUME 86.9 fL (80.0-94.0); MEAN CORPUSCULAR HEMOGLOBIN 29.7 pg (27.0-31.0); MEAN CORPUSCULAR HGB CONC 34.2 g/dL (33.0-37.0); MEAN PLATELET VOLUME 7.6 fL (7.2-11.7); RED CELL DISTRIBUTION WIDTH 13.8 % (11.5-14.5); WHITE BLOOD COUNT 7.1 K/uL (4.8-10.8)
[2017-05-11 11:07] LABS: CHLORIDE 100 mmol/L (98-107); POTASSIUM 3.8 mmol/L (3.6-5.2); SODIUM 137 mmol/L (132-148)
[2017-05-11 11:09] LABS: GFR AFRICAN-AMERICAN > 60
[2017-05-11 11:10] LABS: ALB/GLOB RATIO 1.2 (1.0-2.1); ALKALINE PHOSPHATASE 60 U/L (38-126); ALT/SGPT 39 U/L (21-72); AST/SGOT 29 U/L (17-59); BILIRUBIN,TOTAL 0.9 mg/dL (0.2-1.3); BLOOD UREA NITROGEN 15 mg/dL (9-20); CALCIUM 8.9 mg/dl (8.6-10.4); CARBON DIOXIDE 26 mmol/L (22-30); GLUCOSE,RANDOM 142 mg/dL (75-110); TOTAL PROTEIN 6.8 g/dL (6.3-8.3)
== END 2017-05-11 13:46 | disposition home or self-care (01) | DRG 244 ==
LOC: C.ER 17:04 → C.9I 18:10 → C.9E 18:10 → C.6T 05-06 22:06 → UNDODISIN 05-10 11:21 → C.6T 05-10 20:01
PROVIDERS: ADMIT Hospitalist; ATTEND Hospitalist
PROC: B2111ZZ Fluoroscopy of Multiple Coronary Arteries using Low Osmolar Contrast (ICD-10-PCS; 2017-05-07)
PROC: 4A023N7 Measurement of Cardiac Sampling and Pressure, Left Heart, Percutaneous Approach (ICD-10-PCS; 2017-05-07)
PROC: 0JH604Z Insertion of Pacemaker, Single Chamber into Chest Subcutaneous Tissue and Fascia, Open Approach (ICD-10-PCS; principal; 2017-05-10)
PROC: 02H63JZ Insertion of Pacemaker Lead into Right Atrium, Percutaneous Approach (ICD-10-PCS; 2017-05-10)
PROC: 4A023N7 Measurement of Cardiac Sampling and Pressure, Left Heart, Percutaneous Approach (ICD-10-PCS; 2017-05-10)
PROC: B2111ZZ Fluoroscopy of Multiple Coronary Arteries using Low Osmolar Contrast (ICD-10-PCS; 2017-05-10)
DX: I44.1 Atrioventricular block, second degree (principal); I11.9 Hypertensive heart disease without heart failure; E78.5 Hyperlipidemia, unspecified; R00.1 Bradycardia, unspecified; I25.10 Atherosclerotic heart disease of native coronary artery without angina pectoris; Z66 Do not resuscitate